=== PATIENT | male | born 1995 | race Caucasian/White ===

== ENCOUNTER 2020-08-03 20:05 | Emergency (ER) | payer OTHER, SELFPAY ==
[2020-08-03 20:22] VITALS: BP 143/89; PULSE 93; RESP 14; TEMP 37; O2SAT 99; BMI 33.7
--- NOTE | 2020-08-03 20:36 | ED_ITS ---
HPI - Dental/Oral General: Chief complaint: Dental/Oral Stated complaint: oral pain Time Seen by Provider: 08/03/20 20:23 Source: patient Mode of arrival: ambulatory Limitations: no limitations History of Present Illness: HPI Narrative: Patient comes in today for complaints of right lower jaw wisdom tooth pain. Patient reports losing a piece of his tooth that was coming through. Patient appears well. Patient reports dental pain. Patient is managing secretions well. Patient appears no acute distress. Location: Tooth # (32) Onset (ago): day(s) Duration: constant Severity: moderate Exacerbating factors: chewing and swallowing Context: other (impacted wisdom teeth) Associated symptoms: Reports odynophagia Treatment prior to arrival: none Review of Systems General: Reports: 10 or more systems reviewed and unremarkable except in HPI and below ENMT: Reports: odynophagia and dental pain PFSH ED PFSH: Social History Smoking and tobacco status: current every day smoker Alcohol intake: current Physical Exam Const: COMMON NORMALS: no acute distress and patient oriented x3 GENERAL APPEARANCE: cooperative HENMT: COMMON NORMALS: normocephalic, TM's normal bilaterally and Normal external nose present HEAD & SCALP: normal to inspection and normocephalic NOSE: Normal external nose present TYMPANIC MEMBRANE: TM's normal bilaterally MOUTH: Normal oral and palatal mucosa present THROAT: posterior oropharynx normal Eye: GENERAL EYE: appearance normal, both eyes and all related structures Neck/C-Spine: COMMON NORMALS: full ROM Lymph: LYMPHATIC: no lymphadenopathy noted Chest: COMMONS NORMALS: normal inspection of the chest Resp: COMMON NORMALS: normal respiratory effort EFFORT & INSPECTION: Yes able to speak in complete sentences Cardio: COMMON NORMALS: regular rate and regular rhythm RATE: regular rate RHYTHM: regular rhythm GI: COMMON NORMALS: non-tender Back/Pelvis: COMMON NORMALS: thoracic and lumbar spine normal to inspection Extremity: COMMON NORMALS: normal to inspection Neuro: COMMON NORMALS: patient oriented x3 and moves all extremities Psych: COMMON NORMALS: mental status grossly normal and cooperative Skin: COMMON NORMALS: no rashes or lesions noted GENERAL SKIN EXAM: no rashes or lesions noted Course Vital Signs: Vital signs: Vital Signs Temperature 98.6 F 08/03/20 20:22 Pulse Rate 93 08/03/20 20:22 Respiratory Rate 14 08/03/20 20:22 Blood Pressure 143/89 08/03/20 20:22 Pulse Oximetry 99 08/03/20 20:22 MDM - Dental/Oral MDM Narrative: Medical decision making narrative: Patient comes in with sore throat and dental pain. On exam pharynx is open without any airway obstruction or significant swelling. Patient has a impacted right lower wisdom tooth that has some surrounding tissue swelling and redness. No obvious abscess is noted. Patient manages his secretions well. Vital signs are normal. Differential diagnosis includes not limited to retropharyngeal abscess, periapical abscess, dental caries, dental pain. No signs of serious illnesses noted at this time. Patient is able to swallow but complaints of difficulty with swallowing although patient has no signs of airway obstruction, posterior oropharynx asymmetry or swelling. Patient is able to manipulate jaw without any difficulty, and patient is managing secretions well. I believe patient probably has secondary inflammation to his dental pain. We will treat patient with some dexamethasone to help with the pain and inflammation. We will cover if antibiotic including a Rocephin injection and Augmentin to follow. Patient will be given ketorolac to take for pain and inflammation further. Patient was given injections of medications to start due to his discomfort with swallowing. Discharge Plan Discharge Patient Disposition: Home Clinical Impression: Toothache, Dental caries Condition: Stable Prescriptions: New Augmentin 875-125 mg tablet 1 tab PO BID Qty: 14 RF: 0 ketorolac 10 mg tablet 10 mg PO Q6H PRN (Reason: pain) Qty: 10 RF: 0 No Action sulfamethoxazole-trimethoprim [Bactrim DS] 800-160 mg tablet 1 tab PO Q12H Qty: 14 RF: 0 Discharge Orders: Discharge ED (Routine); Ordered 08/03/20 Ordered By: Roberto Bautista Discharge Diet: Soft Mechanical Discharge Activity: Increase activity as tolerated Patient Instructions: Toothache (ED), Opioid Safety Activity Restrictions/Additional Instructions: Take medication as directed. Drink plenty of water with medication. Follow-up with dentist for definitive care. Return to the emergency department for new concerns. Coding Level of Care Code ED Beam Builder Helper for Alex Galeana
[2020-08-03] MEDS: ketorolac 30 mg/mL INJ IM (21:02)
[2020-08-03] MEDS: dexamethasone 10 mg/mL INJ IM (21:02)
[2020-08-03] MEDS: cefTRIAXone 1,000 mg SDV 1000 MG IM (21:02)
[2020-08-03 21:49] VITALS: BP 148/89; PULSE 81; RESP 14; O2SAT 100
== END 2020-08-03 21:49 | disposition home or self-care (01) ==
PROVIDERS: Emergency Provider Nurse Practitioner Family
DX: K02.9 Dental caries, unspecified (principal); K08.89 Other specified disorders of teeth and supporting structures; F17.210 Nicotine dependence, cigarettes, uncomplicated
CPT/HCPCS: 96372; 99283; J0696; J1100; J1885

== ENCOUNTER 2021-07-23 17:56 | Emergency (ER) | payer OTHER, SELFPAY ==
[2021-07-23 18:04] VITALS: BP 173/61; PULSE 74; RESP 18; TEMP 36.6; O2SAT 99; BMI 34.4
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
[2021-07-23] MEDS: HYDROcodone-acetaminophen 5-325 mg Tablet 1 TAB PO (18:22)
[2021-07-23] MEDS: methocarbamol 750 mg Tablet PO (18:22)
--- NOTE | 2021-07-26 09:18 | DCPLANNER ---
Addendum entered by Chika Shah 07/30/21 09:32: Patient had a follow up appointment scheduled with ortho - patient did attend appointment. Addendum entered by Chika Shah 07/27/21 06:35: Patient has a follow up appointment scheduled for , July 29, [address] at 8:[address] Treviño at ortho. Clinic will call patient with appointment information. Original Note: quality project manager had message to schedule a follow up appointment for patient with ortho. quality project manager called the ortho clinic, spoke with Lissett, gave clinic patients information. quality project manager was told that patients information would be printed and reviewed. Clinic will call patient with appointment information.
== END 2021-07-23 18:40 | disposition home or self-care (01) ==
PROVIDERS: Emergency Provider Emergency Medicine
DX: S13.4XXA Sprain of ligaments of cervical spine, initial encounter (principal); V64.5XXA Driver of heavy transport vehicle injured in collision with heavy transport vehicle or bus in traffic accident, initial encounter; F17.200 Nicotine dependence, unspecified, uncomplicated
CPT/HCPCS: 99283

== ENCOUNTER → 2021-07-28 07:58 | Outpatient (BNVA) | payer OTHER, SELFPAY | PROVIDERS: Referring Provider Emergency Medicine; Visit Provider Specialist | DX: M25.562 Pain in left knee (principal); V89.2XXA Person injured in unspecified motor-vehicle accident, traffic, initial encounter | CPT/HCPCS: 73560; 73565 ==

== ENCOUNTER → 2021-08-03 15:55 | Outpatient (BNVA) | payer OTHER, SELFPAY | PROVIDERS: Visit Provider Family Medicine | DX: M54.2 Cervicalgia (principal); M62.830 Muscle spasm of back; Z76.89 Persons encountering health services in other specified circumstances | CPT/HCPCS: 80053; 85025 ==

== ENCOUNTER → 2021-08-05 09:17 | Outpatient (BNVA) | payer OTHER, SELFPAY | PROVIDERS: Visit Provider Orthopaedic Surgery | DX: M54.2 Cervicalgia (principal) | CPT/HCPCS: 72050 ==

== ENCOUNTER → 2021-08-12 08:50 | Outpatient (BNVA) | payer OTHER, SELFPAY | PROVIDERS: Visit Provider Physician Assistant | DX: M54.50 Low back pain, unspecified (principal); M54.6 Pain in thoracic spine | CPT/HCPCS: 72072; 72110 ==

== ENCOUNTER 2021-08-16 15:22 | Outpatient (CLI) | payer OTHER, SELFPAY ==
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
== END 2021-08-16 15:23 | disposition home or self-care (01) ==
LOC: RAD 15:25
PROVIDERS: PCP Family Medicine; Visit Provider Specialist
DX: M25.562 Pain in left knee (principal); S13.4XXA Sprain of ligaments of cervical spine, initial encounter; V89.2XXA Person injured in unspecified motor-vehicle accident, traffic, initial encounter; R60.0 Localized edema
CPT/HCPCS: 73721

== ENCOUNTER 2021-08-18 06:00 | Outpatient (RCR) | payer OTHER, SELFPAY | END 2021-09-02 23:59 | disposition home or self-care (01) | LOC: SPT 06:00 | PROVIDERS: PCP Family Medicine; Referring Provider Orthopaedic Surgery; Visit Provider Orthopaedic Surgery | DX: M54.2 Cervicalgia (principal); M54.9 Dorsalgia, unspecified | CPT/HCPCS: 97110; 97140; 97161 ==

== ENCOUNTER 2021-09-01 06:00 | Outpatient (RCR) | payer OTHER, SELFPAY | END 2021-09-02 23:59 | disposition home or self-care (01) | LOC: SPT 06:00 | PROVIDERS: PCP Family Medicine; Referring Provider Specialist; Visit Provider Specialist | DX: M25.562 Pain in left knee (principal) | CPT/HCPCS: 97161; G0283 ==

== ENCOUNTER 2021-09-03 06:00 | Outpatient (RCR) | payer OTHER, SELFPAY | END 2021-09-15 23:59 | disposition home or self-care (01) | LOC: SPT 06:00 | PROVIDERS: PCP Family Medicine; Referring Provider Orthopaedic Surgery; Visit Provider Orthopaedic Surgery | DX: M54.2 Cervicalgia (principal); M54.9 Dorsalgia, unspecified | CPT/HCPCS: 97110 ==

== ENCOUNTER 2021-09-06 09:13 | Emergency (ER) | payer OTHER, SELFPAY ==
[2021-09-06 09:58] VITALS: BP 130/73; PULSE 111; RESP 21; TEMP 36.8; O2SAT 99; BMI 34.4
--- NOTE | 2021-09-06 10:29 | XR_ITS ---
WS: [id number] XR chest 1V portable [id number] REASON FOR EXAM: cough and fever FINDINGS: The heart and mediastinum are within normal limits. Calcified granulomatous disease in both hemithoraces. No acute pulmonary parenchymal or pleural abnormality. Bony thorax is intact with no significant focal abnormality. XR/XR chest 1V portable [id number] IMPRESSION: No acute chest abnormality.
--- NOTE | 2021-09-06 10:30 | ED_ITS ---
HPI - COVID General: Chief Complaint: COVID symptoms Stated Complaint: fever / throat and head pain Time Seen by Provider: 09/06/21 09:58 Triage information: Has fever, cough or shortness of breath . History of Present Illness: Patient is a 25-year-old male comes to the ED with upper respiratory symptoms. Symptoms have been going on for the past 3 days. Patient reports having fever, cough, nasal congestion drainage, body aches and sore throat. His sore throat is painful. He is able to eat and drink much because of his nausea and sore throat. He feels dehydrated. was just diagnosed with influenza over the past week. COVID 19 common symptoms: positive fever(s), non-productive cough, body aches, throat pain and nasal congestion; negative chills, productive cough, dyspnea, fatigue, headache(s), nausea, vomiting or diarrhea COVID 19 other sytmptoms: negative chest pain COVID Results: SARS-CoV-2 (PCR) Not detected (NOT DETECT) 09/06/21 10:20 09/06/21 Coronavirus Type 229E (PCR) Not detected (NOT DETECT) 09/06/21 10:20 09/06/21 Review of Systems Const: Reports: fever(s) and body aches; Denies: chills or fatigue Eyes: Denies: change in vision or eye discomfort ENMT: Reports: throat pain, nasal discharge and nasal congestion; Denies: odynophagia Card: Denies: chest pain, palpitations, edema, swelling of feet/ankles, dyspnea on exertion or orthopnea Resp: Reports: non-productive cough; Denies: dyspnea or productive cough GI: Denies: abdominal pain, nausea, vomiting, diarrhea, constipation or hematochezia : Denies: flank pain, difficulty urinating, dysuria or hematuria Musc: Denies: neck pain, back pain or extremity swelling Skin/Breast: Denies: rash or new lesions Neuro: Denies: headache(s), numbness in extremities or weakness in extremities PFSH ED PFSH: Medical History No pertinent family history Surgical History No pertinent past surgical history Social History Smoking and tobacco status: current every day smoker Alcohol intake: current Alcohol intake frequency: holidays/special occasions only Physical Exam Const: COMMON NORMALS: patient oriented x3 and alert GENERAL APPEARANCE: cooperative HENMT: COMMON NORMALS: normocephalic HEAD & SCALP: normocephalic MOUTH: Normal oral and palatal mucosa present and moist mucous membranes abnormal Details: parched THROAT: uvula midline and posterior oropharynx abnormal erythema Neck/C-Spine: COMMON NORMALS: supple GENERAL: Yes normal visual inspection Resp: COMMON NORMALS: normal respiratory effort, No retractions, No use of accessory muscles and clear to auscultation bilaterally AUSCULTATION: clear to auscultation bilaterally Cardio: COMMON NORMALS: regular rate, regular rhythm, S1 normal heart sound present, S2 normal heart sound present, No gallops present (Cardio), No clicks present (Cardio), No murmurs present (Cardio) and Peripheral pulses 2+ throughout RATE: regular rate RHYTHM: regular rhythm HEART SOUNDS: S1 normal heart sound present and S2 normal heart sound present PERIPHERAL PULSES: Peripheral pulses 2+ throughout GI: COMMON NORMALS: Normal to inspection, nondistended, normoactive bowel sounds present, Soft to palpation, non-tender and no masses PALPATION: Yes Soft to palpation : COMMON NORMALS: Yes no CVA tenderness BLADDER/KIDNEY EXAM: Yes no CVA tenderness Back/Pelvis: COMMON NORMALS: no CVA tenderness Extremity: COMMON NORMALS: normal to inspection Neuro: COMMON NORMALS: patient oriented x3 and moves all extremities SENSORIUM/ORIENTATION: Yes alert Skin: GENERAL SKIN EXAM: dry skin Course Vital Signs: Vital signs: Vital Signs Temperature 100.4 F H 09/06/21 13:17 Pulse Rate 105 H 09/06/21 13:17 Respiratory Rate 26 H 09/06/21 13:17 Blood Pressure 116/72 09/06/21 13:17 Pulse Oximetry 95 09/06/21 13:17 MDM - COVID Medical Decision Making Patient is a 25-year-old male comes to the ED with upper respiratory symptoms. He has had cough, nasal congestion, body aches fever and a sore throat for the past 3 days. His tested positive for influenza within the last week. Patient had a temp of 100.4 here in the ED rest of his vitals were stable. Patient appears in no acute distress or pain. He has some posterior oropharynx erythema. The rest of exam is benign. White blood cell count 15.7 but the rest of the labs are unremarkable. Chest x-ray shows no acute findings. Strep negative, RSV negative, influenza A positive. Patient diagnosed with viral syndrome and influenza A. He was given 1 L of IV fluids here in the ED and a dose of Decadron. He was discharged home with some amoxicillin and told to follow-up with his PCP in the next week for reevaluation. Return to ED precautions given. Patient understood and agree with plan. Lab Data I reviewed the patient's lab results. : 09/06/21 10:50 09/06/21 11:30 Radiology Impressions Chest X-Ray 09/06/21 10:29 IMPRESSION: No acute chest abnormality. Laboratory Results WBC 15.7 10^3/uL (4.0-10.0) H 09/06/21 10:50 RBC 4.90 10^6/uL (4.1-5.3) 09/06/21 10:50 Hgb 15.6 g/dL (11.7-16.6) 09/06/21 10:50 Hct 45.4 % (42.0-52.0) 09/06/21 10:50 MCV 92.7 fl (80-94) 09/06/21 10:50 MCH 31.8 pg (28.0-34.0) 09/06/21 10:50 MCHC 34.4 g/dL (30.0-36.0) 09/06/21 10:50 RDW 12.7 % (12.1-15.1) 09/06/21 10:50 Plt Count 238 10^3/cmm (130-400) 09/06/21 10:50 MPV 10.2 fL (7.4-10.4) 09/06/21 10:50 Neut % (Auto) 82.5 % 09/06/21 10:50 Lymph % (Auto) 8.9 % 09/06/21 10:50 [place] % (Auto) 7.3 % 09/06/21 10:50 Eos % (Auto) 0.6 % 09/06/21 10:50 Baso % (Auto) 0.3 % 09/06/21 10:50 Neut # (Auto) 12.93 10^3/uL (1.8-7.7) H 09/06/21 10:50 Lymph # (Auto) 1.4 10^3/uL (0.8-4.8) 09/06/21 10:50 [place] # (Auto) 1.1 10^3/uL (0.2-0.9) H 09/06/21 10:50 Eos # (Auto) 0.1 10^3/uL (0.0-0.8) 09/06/21 10:50 Baso # (Auto) 0.1 10^3/uL (0.0-0.1) 09/06/21 10:50 Nucleated RBC % (auto) 0 % 09/06/21 10:50 Nucleated RBCs # 0.0 /100WBC 09/06/21 10:50 Sodium 137 mmol/L (136-145) 09/06/21 11:30 Potassium 3.7 mmol/L (3.5-5.1) 09/06/21 11:30 Chloride 106 mmol/L (98-107) 09/06/21 11:30 Carbon Dioxide 21 mmol/L (22-29) L 09/06/21 11:30 Anion Gap 13.7 (5-19) 09/06/21 11:30 BUN 10 mg/dL (6-20) 09/06/21 11:30 Creatinine 1.0 mg/dL (0.7-1.2) 09/06/21 11:30 GFR Calculation 92.6 mL/min (90-130) 09/06/21 11:30 Glucose 98 mg/dL (65-115) 09/06/21 11:30 Calculated Osmolality 283 mOsm/kg (285-295) L 09/06/21 11:30 Calcium 8.4 mg/dL (8.5-10.5) L 09/06/21 11:30 Total Bilirubin 0.5 mg/dL (0.15-1.2) 09/06/21 11:30 AST 16 U/L (0-40) 09/06/21 11:30 ALT 35 U/L (0-41) 09/06/21 11:30 Alkaline Phosphatase 77 IU/L (40-130) 09/06/21 11:30 Total Protein 5.6 g/dL (6.6-8.7) L 09/06/21 11:30 Albumin 3.8 g/dL (3.5-5.2) 09/06/21 11:30 Globulin 1.8 g/dL (1.3-4.6) 09/06/21 11:30 Nasal Influ A H1 2009 PCR Not detected (NOT DETECT) 09/06/21 12:36 Coronavirus 229E (PCR) Not detected (NOT DETECT) 09/06/21 10:20 Influenza A (H1) PCR Not detected (NOT DETECT) 09/06/21 12:36 Influenza A (H3) PCR Detected (NOT DETECT) A 09/06/21 12:36 Influenza Type A Ag Negative (Negative) 09/06/21 10:20 Influenza Type A (PCR) Detected (NOT DETECT) A 09/06/21 12:36 Influenza Type B Ag Negative (Negative) 09/06/21 10:20 Influenza Type B (PCR) Not detected (NOT DETECT) 09/06/21 12:36 SARS-CoV-2 (PCR) Not detected (NOT DETECT) 09/06/21 10:20 Group A Strep Rapid Negative (Negative) 09/06/21 10:20 SARS-CoV-2 (PCR) Not detected (NOT DETECT) 09/06/21 10:20 09/06/21 Coronavirus Type 229E (PCR) Not detected (NOT DETECT) 09/06/21 10:20 09/06/21 EKG Data EKG 1: EKG interpretation date: 09/06/21 Interpretation: Sinus tachycardia, 105 bpm, no ST segment elevation or depression seen. No other acute findings noted. Discharge Plan Discharge Patient Disposition: Home Clinical Impression: Acute viral syndrome, Influenza A Condition: Stable Prescriptions: New amoxicillin 500 mg capsule 500 mg PO BID 10 Days Qty: 20 0RF ondansetron 4 mg tablet,disintegrating 4 mg PO Q8H PRN (Reason: nausea and vomiting) Qty: 15 0RF Flonase Allergy Relief 50 mcg/actuation spray,suspension 1 spray intranasal BID PRN (Reason: nasal congestion) Qty: 16 0RF Rx Instructions: administer into each nostril No Action cyclobenzaprine 10 mg tablet 10 mg PO TID PRN (Reason: muscle spasm) Qty: 30 1RF prednisone 20 mg tablet 20 mg PO DAILY Qty: 15 0RF Rx Instructions: 3 tabs PO days 1-3 2 tabs PO days 4-5 1 tab PO days 6-7 meloxicam [Mobic] 15 mg tablet 15 mg PO DAILY Qty: 30 0RF hydrocodone-acetaminophen 5-325 mg tablet 1 tab PO Q6H PRN (Reason: pain) Qty: 14 0RF Naprosyn 500 mg tablet 500 mg PO BID PRN (Reason: pain) Qty: 20 0RF Discharge Orders: Discharge ED (Routine); Ordered 09/06/21 Ordered By: Siddharth Mg Referrals: Arslan Giron, [Primary Care Provider] - Discharge Diet: Regular Discharge Activity: Increase activity as tolerated Patient Instructions: Viral Syndrome (ED) Activity Restrictions/Additional Instructions: Follow-up with medical provider as directed in the next 5 to 7 days reevaluation.Take medications as prescribed. Drink plenty of fluids and stay hydrated. Return to the ER or your medical provider if condition worsens. Please read and understand discharge instructions. Thank you for choosing [facility] for your healthcare needs today. Please realize this is an emergency room and that we are providing you with a medical screening exam and this may not be complete and all inclusive of all the testing and or work up that you may need to determine your ailment or severity of your illness. It is very important that you follow up as instructed or that you return to the Emergency Department should you have concerns or if your condition changes or worsens in any way. Coding Level of Care Code ED Compliance Field Technician for Alex Galeana Exam Comprehensive
[2021-09-06 10:38] LABS: Rapid Strep A Test Negative (Negative)
[2021-09-06 10:49] LABS: Influenza A by IFA Negative (Negative); Influenza B by IFA Negative (Negative)
[2021-09-06] MEDS: sodium chloride 0.9% 1,000 ML 999 ML IV (10:53)
[2021-09-06] MEDS: ondansetron 2 mg/ML SDV 2 mL 4 MG IVP (10:54)
[2021-09-06] MEDS: acetaminophen 1,000 MG/100 ML PIGGYBACK 400 MG IV (10:54)
[2021-09-06 11:00] VITALS: BP 118/78; PULSE 100; RESP 20; TEMP 38; O2SAT 97
[2021-09-06 11:01] VITALS: O2SAT 97
[2021-09-06 11:03] LABS: Basophils # 0.1 10^3/uL (0.0-0.1); Basophils % 0.3 %; Eosinophils # 0.1 10^3/uL (0.0-0.8); Eosinophils % 0.6 %; Hematocrit 45.4 % (42.0-52.0); Hemoglobin 15.6 g/dL (11.7-16.6); Lymphocytes # 1.4 10^3/uL (0.8-4.8); Lymphocytes % 8.9 %; Mean Corpuscular HGB Conc 34.4 g/dL (30.0-36.0); Mean Corpuscular Hemoglobin 31.8 pg (28.0-34.0); Mean Corpuscular Volume 92.7 fl (80-94); Mean Platelet Volume 10.2 fL (7.4-10.4); Monocytes # 1.1 10^3/uL (0.2-0.9); Monocytes % 7.3 %; Neutrophils # 12.93 10^3/uL (1.8-7.7); Neutrophils % 82.5 %; Nucleated Red Blood Cells % 0 %; Platelet Count 238 10^3/cmm (130-400); Red Cell Distribution Width 12.7 % (12.1-15.1); White Blood Count 15.7 10^3/uL (4.0-10.0)
[2021-09-06 12:09] LABS: Adenovirus Not Detected (NOT DETECT); Chlamydia Pneumoniae Not Detected (NOT DETECT); Coronavirus 229E,HKU1,NL63,OC4 Not Detected (NOT DETECT); Human Metapneumovirus Not Detected (NOT DETECT); Human Rhinovirus/Enterovirus Not Detected (NOT DETECT); Influenza A Detected (NOT DETECT); Influenza A H1 Not Detected (NOT DETECT); Influenza A H1-2009 Not Detected (NOT DETECT); Influenza A H3 Detected (NOT DETECT); Influenza B Not Detected (NOT DETECT); Mycoplasma Pneumoniae Not Detected (NOT DETECT); Parainfluenza Virus Type 1 Not Detected (NOT DETECT); Parainfluenza Virus Type 2 Not Detected (NOT DETECT); Parainfluenza Virus Type 3 Not Detected (NOT DETECT); Parainfluenza Virus Type 4 Not Detected (NOT DETECT); Respiratory Syncytial Virus A Not Detected (NOT DETECT); Respiratory Syncytial Virus B Not Detected (NOT DETECT); SARS-COV-2 Not Detected (NOT DETECT)
[2021-09-06 12:17] LABS: Alanine Aminotransferase 35 U/L (0-41); Albumin Level 3.8 g/dL (3.5-5.2); Alkaline Phosphatase 77 IU/L (40-130); Anion Gap 13.7 (5-19); Aspartate Amino Transferase 16 U/L (0-40); Blood Urea Nitrogen 10 mg/dL (6-20); Calcium 8.4 mg/dL (8.5-10.5); Carbon Dioxide 21 mmol/L (22-29); Chloride 106 mmol/L (98-107); Globulin 1.8 g/dL (1.3-4.6); Glomerular Filtration Rate 92.6 mL/min (90-130); Glucose 98 mg/dL (65-115); Osmolality Calculated 283 mOsm/kg (285-295); Potassium 3.7 mmol/L (3.5-5.1); Sodium 137 mmol/L (136-145); Total Bilirubin 0.5 mg/dL (0.15-1.2); Total Protein 5.6 g/dL (6.6-8.7)
[2021-09-06 12:36] LABS: Influenza A Detected (NOT DETECT); Influenza A H1 Not Detected (NOT DETECT); Influenza A H1-2009 Not Detected (NOT DETECT); Influenza A H3 Detected (NOT DETECT); Influenza B Not Detected (NOT DETECT); Results from Genmark
[2021-09-06] MEDS: dexamethasone 10 mg/mL INJ IVP (12:57)
--- NOTE | 2021-09-06 12:57 | ECG_ITS ---
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 Measurements Intervals [place] Rate: 105 P: 59 CO: 218 QRS: 82 QRSD: 88 T: 39 QT: 281 QTc: 372 Interpretive Statements SINUS TACHYCARDIA WITH FIRST DEGREE AV BLOCK No previous ECG available for comparison Electronically Signed On 09-07-2021 9:17:11 CDT by Anand Stearns M.D. [email or web address]
[2021-09-06 13:17] VITALS: BP 116/72; PULSE 105; RESP 26; TEMP 38; O2SAT 95
== END 2021-09-06 13:18 | disposition home or self-care (01) ==
PROVIDERS: Emergency Provider Physician Assistant; PCP Family Medicine
DX: J10.1 Influenza due to other identified influenza virus with other respiratory manifestations (principal); F17.210 Nicotine dependence, cigarettes, uncomplicated
CPT/HCPCS: 71045; 80053; 85025; 87081; 87631; 87635; 87804; 87880; 93005; 96361; 96374; 96375; 99283; J1100; J2405; J7030

== ENCOUNTER 2021-11-02 08:19 | Outpatient (CLI) | payer OTHER, SELFPAY ==
--- NOTE | 2021-11-02 08:45 | MR_ITS ---
WS: [id number] MRI CERVICAL SPINE NONCONTRAST TECHNIQUE: Sagittal T1, T2 and STIR imaging. Axial T2, gradient, and fiesta imaging. CLINICAL INFORMATION: pain COMPARISON: None. FINDINGS: Straightening of the normal cervical lordosis. Cord signal is normal. No high-grade central canal haim nosis. C2-C3: Normal. C3-C4: Minimal disc bulge with endplate ridging. Mild LEFT and no significant RIGHT foraminal narrowi ng. Spinal canal is patent. Mild facet arthropathy. Disc bulging eccentric to the LEFT. C4-C5: Minimal disc bulge with endplate ridging. Mild facet arthropathy. Mild LEFT greater than RIGHT foraminal narrowing. C5-C6: No significant disc bulging. Mild endplate ridging. Mild LEFT greater than RIGHT bony foramina l narrowing. Mild facet arthropathy. C6-C7: Normal. C7-T1: Slight anterolisthesis C7 on T1. Spinal canal and foramen are patent. Visualized brain stem structures: Normal. Prevertebral soft tissues: Normal. MR/MR cervical spin wo con* [id number] IMPRESSION: 1. Straightening of the normal cervical lordosis. Mild cervical curve. 2. Mild bony foraminal narrowing LEFT C3-C4, LEFT C4-C5, bilateral C5-C6 LEFT greater than RIGHT. 3. Mild facet arthropathy more prominent at C4-C5 and C5-C6. 4. No significant central canal stenosis. Cord signal is normal.
== END 2021-11-02 08:20 | disposition home or self-care (01) ==
LOC: RAD 08:19
PROVIDERS: PCP Family Medicine; Visit Provider Orthopaedic Surgery
DX: M54.2 Cervicalgia (principal); S13.4XXA Sprain of ligaments of cervical spine, initial encounter; X58.XXXA Exposure to other specified factors, initial encounter
CPT/HCPCS: 72141

== ENCOUNTER 2021-12-08 10:58 | Outpatient (CLI) | payer OTHER, SELFPAY ==
--- NOTE | 2021-12-08 11:00 | MR_ITS ---
WS: [id number] MRI LUMBAR SPINE NONCONTRAST HISTORY: M54.9 - Dorsalgia, unspecified COMPARISON: None available. TECHNIQUE: Sagittal and axial multisequence imaging is submitted. Normal lumbar alignment with no compression fractures or marrow edema. Disc spaces and vertebral body heights are well-preserved. Conus terminates normally at L1-2 disc level. L1-L2: Normal. L2-L3: Normal. L3-L4: Mild ligamentum flavum hypertrophy and facet arthritis. No stenosis. L4-L5: Minimal diffuse disc bulging with mild ligamentum flavum hypertrophy. Small foraminal osteophy sebas. Only very mild foraminal stenosis and mild encroachment into the subarticular recesses. L5-S1: Mild annular disc bulging. Mild narrowing of the foramen by facet and osteophyte disease. Mild bilateral foraminal stenosis. MR/MR lumbar spine wo con* [id number] IMPRESSION: 1. No high-grade stenosis or disc protrusions. 2. Mild foraminal narrowing at L4-5 and L5-S1 and mild subarticular recess enc roachment at L4-5.
--- NOTE | 2021-12-08 11:45 | MR_ITS ---
WS: [id number] MRI THORACIC SPINE noncontrast. HISTORY: M54.9 - Dorsalgia, unspecified, pain to LEFT shoulder. COMPARISON: None available. TECHNIQUE: Multiplanar sequences are performed in sagittal and axial planes. Posterior thoracic alignment is normal. Mild narrowing of the disc spaces. No acute fracture or marro w edema. No signal abnormality within the cord. No cord atrophy or enlargement. T1-2: Normal. T2-3: Normal. T3-4: Very small proximal LEFT foraminal disc protrusion and/or osteophyte. This may be contacting t he traversing nerve root. T4-5: Additional very small LEFT paracentral versus proximal foraminal disc protrusion. T5-6: Normal. T6-7: Very shallow RIGHT paracentral disc protrusion may very slightly contacts the thoracic cord. N o displacement. T7-8: Very shallow RIGHT paracentral disc protrusion contacts the cord. No displacement. T8-9: Mild disc bulging and osteophytic ridging. T9-10: Normal. T10-11: Normal. T11-12: Normal. Paravertebral soft tissues are negative. MR/MR thoracic spin wo con* [id number] IMPRESSION: 1. Very small proximal LEFT foraminal disc protrusions at T3-4 and T4-5. Minim al contact on the nerve root is likely. 2. Very shallow RIGHT paracentral disc protrusion at C6-7 and T7-8 with minima l contact on the cord. No displacement. 3. No fracture or marrow edema.
== END 2021-12-08 10:59 | disposition home or self-care (01) ==
LOC: RAD 10:59
PROVIDERS: PCP Family Medicine; Visit Provider Orthopaedic Surgery
DX: M54.9 Dorsalgia, unspecified (principal); M51.24 Other intervertebral disc displacement, thoracic region
CPT/HCPCS: 72146; 72148

== ENCOUNTER 2022-09-13 08:52 | Emergency (ER) | payer OTHER, SELFPAY ==
[2022-09-13] VITALS (33 sets, daily range): BP systolic 133–156; BP diastolic 85–106; PULSE 70–103; RESP 10–29; TEMP 36.8; O2SAT 90–100
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
--- NOTE | 2022-09-13 08:59 | XR_ITS ---
WS: [id number] EXAMINATION: XR tibia fibula RT 2V [id number] REASON FOR EXAM: pain COMPARISON: None available. ORDER DATE: 09/13/2022 9:05 AM FINDINGS: There is no sign of any acute osseous or articular abnormality. There are no specific soft tissue abn ormalities. XR/XR tibia fibula RT 2V [id number] IMPRESSION: No acute change
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
--- NOTE | 2022-09-13 08:59 | XR_ITS ---
WS: [id number] EXAMINATION: XR ankle RT min 3V* [id number] REASON FOR EXAM: pain COMPARISON: None available. ORDER DATE: 09/13/2022 9:05 AM TECHNIQUE: 3 views of the right ankle were obtained. X-RAY FINDINGS: There is satisfactory alignment. There is no evidence of abnormality of the ankle mortise. Prominent os trigonum XR/XR ankle RT min 3V* [id number] IMPRESSION: No fractures or dislocations of the right ankle.
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
[2022-09-13] MEDS: tetanus-dipt-pertussis 0.5 mL SDV IM (09:11)
[2022-09-13 09:18] LABS: Hemoglobin 15.5 g/dL (11.7-16.6); Red Blood Count 5.07 10^6/uL (4.1-5.3); White Blood Count 10.2 10^3/uL (4.0-10.0)
[2022-09-13 09:19] LABS: Basophils # 0.1 10^3/uL (0.0-0.1); Basophils % 0.7 %; Eosinophils # 0.3 10^3/uL (0.0-0.8); Eosinophils % 2.8 %; Hematocrit 47.1 % (42.0-52.0); Lymphocytes # 3.2 10^3/uL (0.8-4.8); Mean Corpuscular HGB Conc 32.9 g/dL (30.0-36.0); Mean Corpuscular Hemoglobin 30.6 pg (28.0-34.0); Mean Corpuscular Volume 92.9 fl (80-94); Mean Platelet Volume 9.7 fL (7.4-10.4); Monocytes # 0.8 10^3/uL (0.2-0.9); Monocytes % 7.4 %; Neutrophils # 5.89 10^3/uL (1.8-7.7); Neutrophils % 57.9 %; Nucleated Red Blood Cells % 0 %; Platelet Count 283 10^3/cmm (130-400)
[2022-09-13 09:36] LABS: Alanine Aminotransferase 24 U/L (0-41); Albumin Level 3.9 g/dL (3.5-5.2); Alkaline Phosphatase 75 U/L (40-130); Anion Gap 14.8 (5-19); Aspartate Amino Transferase 18 U/L (0-40); Blood Urea Nitrogen 13 mg/dL (6-20); Calcium 8.9 mg/dL (8.5-10.5); Carbon Dioxide 23 mmol/L (22-29); Chloride 106 mmol/L (98-107); Globulin 2.5 g/dL (1.3-4.6); Glomerular Filtration Rate 82.2 mL/min (90-130); Glucose 90 mg/dL (65-115); Osmolality Calculated 290 mOsm/kg (285-295); Potassium 3.8 mmol/L (3.5-5.1); Sodium 140 mmol/L (136-145); Total Bilirubin 0.4 mg/dL (0.15-1.2); Total Protein 6.4 g/dL (6.6-8.7)
[2022-09-13] MEDS: iohexol 350 mg/mL 500 mL Btl (per mL) IV (09:38)
[2022-09-13] MEDS: ketorolac 30 mg/mL INJ IVP (10:18)
[2022-09-13 10:36] LABS: Add Urine Microscopic? NO
[2022-09-13 10:37] LABS: Charge for UA Resulting for Rev
[2022-09-13 10:44] LABS: Bilirubin Urine Neg (Negative); Blood Urine Neg (Negative); Glucose Urine UA Norm (Normal); Ketones Urine Negative (Negative); Leukocyte Esterase Urine Negative (Negative); Nitrate Urine Negative (Negative); Protein Urine Neg (Negative); Specific Gravity, Urine 1.025 (1.005-1.030); Urine Appearance Clear (CLEAR); Urine Color Yellow (Yellow); Urobilinogen Urine Norm (Negative); pH Urine 6 (5-7)
--- NOTE | 2022-09-13 10:54 | XR_ITS ---
WS: [id number] EXAMINATION: XR foot RT min 3V* [id number] REASON FOR EXAM: pain COMPARISON: None available. ORDER DATE: 09/13/2022 10:57 AM TECHNIQUE: 3 views of the right foot were obtained. X-RAY FINDINGS: There are no fractures or dislocations. No focal abnormal soft tissue swelling. Joint spaces are pres erved. XR/XR foot RT min 3V* [id number] IMPRESSION: No fractures or dislocations of the right foot.
[2022-09-13] MEDS: HYDROcodone-acetaminophen 5-325 mg Tablet 1 TAB PO (11:20)
--- NOTE | 2022-09-13 15:06 | DCPLANNER ---
Addendum entered by Chika Shah 09/23/22 08:11: Patient had a follow up appointment scheduled with ortho - patient did attend appointment. Addendum entered by Chika Shah 09/14/22 07:47: Patient has a follow up appointment scheduled for Tuesday, September 20, 2022 at 1:[address] Liriano at ortho. Original Note: sales department manager had message to schedule a follow up appointment for patient with podiatry. sales department manager sent patients information to the front office staff at podiatry. Patients information will be printed and reviewed. Clinic will call patient with appointment information.
--- NOTE | 2022-09-20 13:58 | DCPLANNER ---
airline manager called patient due to no primary care physician - no answer at this time
== END 2022-09-13 11:40 | disposition home or self-care (01) ==
PROVIDERS: Emergency Provider Family Medicine
DX: S93.601A Unspecified sprain of right foot, initial encounter (principal); S00.81XA Abrasion of other part of head, initial encounter; V89.2XXA Person injured in unspecified motor-vehicle accident, traffic, initial encounter; Z23 Encounter for immunization
CPT/HCPCS: 70450; 71260; 72125; 73562; 73590; 73610; 73630; 74177; 80053; 81003; 85025; 90715; 96374; 99285; J1885; Q9967

== ENCOUNTER → 2022-09-27 14:39 | Outpatient (BNVA) | payer OTHER, SELFPAY | PROVIDERS: Visit Provider Podiatrist Foot & Ankle Surgery | DX: S93.321A Subluxation of tarsometatarsal joint of right foot, initial encounter (principal); V89.2XXA Person injured in unspecified motor-vehicle accident, traffic, initial encounter | CPT/HCPCS: 73630 ==

== ENCOUNTER 2022-10-07 11:30 | Day surgery (SDC) | payer OTHER, SELFPAY ==
[2022-10-04 13:50] VITALS: BMI 31.5
[2022-10-07] VITALS (7 sets, daily range): BP systolic 128–145; BP diastolic 74–99; PULSE 64–85; RESP 16–18; TEMP 36.1–36.5; O2SAT 96–100
--- NOTE | 2022-10-07 | XR_ITS ---
WS: [id number] INTRAOPERATIVE TECHNIQUE: 1 Spot fluoroscopic images for intraoperative purposes. FLUOROSCOPY TIME: 7 seconds DLP: 0.170 mgy/cm CLINICAL INFORMATION: ALISON PICS COMPARISON: None. FINDINGS: Plate and screw fixation 1st TMT joint. Plate and screw fixation 2nd TMT. XR/XR foot RT 2V [id number] IMPRESSION: Images obtained for intraoperative purposes. .
[2022-10-07] MEDS: gabapentin 300 mg Capsule PO (11:58)
[2022-10-07] MEDS: CELEcoxib 200 mg Capsule 400 MG PO (11:58)
[2022-10-07] MEDS: sodium chloride 0.9% 1,000 ML 30 ML IV (11:58)
--- NOTE | 2022-10-07 11:58 | ANES.PREANE2 ---
Pre-Anesthetic Assessment Height/Weight: Height 1.78 m Weight 99.79 kg Temp Pulse Resp BP Pulse Ox O2 Del Method 97.7 F 85 18 140/99 100 Room Air 10/07/22 11:37 10/07/22 11:37 10/07/22 11:37 10/07/22 11:37 10/07/22 11:37 10/07/22 11:41 Preop Diagnosis: Right Lisfranc dislocation Operation Date: 10/07/22 13:00 Proposed Procedures p ?Open reduction internal fixation right first and second tarsometatarsal joint 18173 x2,S93.326A(Right) - Sebas Liriano DPM Familial anesthetic complications: NOne Was Beta Hannah taken within 24 hours: N/A Was Clonidine taken within 24 hours: N/A Last intake: Intake Last Liquid Date 10/06/22 Last Liquid Time 23:55 Last Solid Date 10/06/22 Last Solid Time 18:00 Social Tobacco and No alcohol Exam alert, oriented x 3, clear to auscultation bilaterally and regular rate & rhythm Airway Mallampati: Class II Dentition: chipped Anesthetic Plan ASA status: 2 Anesthesia: General and Regional (specify below) Risk of > 500 ml blood loss (7ml/kg in children): No Medications/Allergies Home Medications Medication Instructions Recorded Confirmed Last Taken Type amitriptyline 25 mg tablet 25 mg PO ONCE 90 days #90 tabs 07/13/22 10/04/22 10/04/22 Rx galcanezumab-gnlm 120 mg/mL 120 mg SUBCUT ONCE #1 mL 08/08/22 10/04/22 Unknown Rx subcutaneous pen injector (Emgality Pen) galcanezumab-gnlm 120 mg/mL 240 mg (2 mL) SUBCUT ONCE #2 mL 08/08/22 10/04/22 08/12/22 Rx subcutaneous pen injector (Emgality Pen) diclofenac sodium 75 mg 75 mg PO Q12H PRN pain #20 tabs 09/13/22 10/04/22 Unknown Rx tablet,delayed release tizanidine 4 mg tablet 4 mg PO Q6H PRN muscle spasticity 09/13/22 10/04/22 Unknown Rx #20 tabs hydrocodone 5 mg-acetaminophen 325 1 tab PO Q6H PRN pain 7 days #28 09/20/22 09/27/22 Unknown Rx mg tablet tabs hydrocodone 5 mg-acetaminophen 325 1 tab PO Q6H PRN pain 7 days #28 09/20/22 09/27/22 Unknown Rx mg tablet tabs hydrocodone 5 mg-acetaminophen 325 1 tab PO Q8H PRN pain 7 days #21 09/28/22 10/04/22 Unknown Rx mg tablet tabs Allergies Allergy/AdvReac Type Severity Reaction Status Date / Time No Known Allergies Allergy Verified 10/04/22 13:42 [facility] Anesthesia Medical History Cellulitis of thumb, right No pertinent family history Surgical History No pertinent past surgical history Social History Smoking and tobacco status: current every day smoker cigarettes Packs smoked per day: 1 Alcohol intake: never Substance/Drug Use: never Data Anesthesia Cardiac Studies: No Data to Display
--- NOTE | 2022-10-07 12:21 | ANES.PROC ---
Anesthesia Procedures Procedure/Date: 10/07/22 Nerve Block ^: Nerve Block 1: Main Anesthesia: general anesthesia Time Out Performed: Yes Consent: requested by attending/covering physician, from patient, from other, risks and benefits reviewed and patient agrees to proceed Nerve block location: popliteal (L) Anesthesia monitors applied: pulse oximetry, EKG, BP cuff and oxygen Nerve block position: supine Anesthetic Used: ropivicaine 0.5% (30 ml) and with decadron (4 mg) Ultrasound used to: recognize landmarks Nerve Stimulator Used?: No Interscalene/Femoral BLK: 4 stimuplex 21 g needle used for position and inplane approach, visualize local anesthetic spread and no vascular puncture identified Injection: neg aspiration of heme and paresthesia +/- Patient Tolerated Procedure: well and no complications Complications: none
--- NOTE | 2022-10-07 12:37 | W.PM.OPSUD ---
Surgery/Procedure H&P Update DATE OF PROCEDURE: October 07, 2022 DATE H&P PERFORMED: 09/27/22 CHANGES TO PREVIOUS DOCUMENTATION: none PREOP DIAGNOSIS: Right Lisfranc dislocation PLANNED PROCEDURE: Operation Date: 10/07/22 13:00 Proposed Procedures p ?Open reduction internal fixation right first and second tarsometatarsal joint 58502 x2,S93.326A(Right) - Sebas Liriano DPM
[2022-10-07] MEDS: ceFAZolin 2,000 MG in sodium chloride 0.9% (plus) 50 ML 100 MG IV (12:56)
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
--- NOTE | 2022-10-07 15:15 | ANE.PACU2 ---
Inpatient post-anesthesia follow up: Airway intact: Yes Vital signs: Temperature 97 F Pulse Rate 75 Respiratory Rate 16 Blood Pressure 145/93 Pulse Oximetry 98 Oxygen Delivery Me thod Room Air Oxygen Flow Rate Fraction of Inspir ed Oxygen Hydration adequate: Yes Nausea and vomiting: No Pain level: 1 Mental status: Baseline
== END 2022-10-07 15:25 | disposition home or self-care (01) ==
PROVIDERS: Visit Provider Podiatrist Foot & Ankle Surgery
PROC: (CPT 28730; principal; 2022-10-07 12:50)
DX: S93.324A Dislocation of tarsometatarsal joint of right foot, initial encounter (principal); F17.210 Nicotine dependence, cigarettes, uncomplicated; Z79.899 Other long term (current) drug therapy; V89.2XXA Person injured in unspecified motor-vehicle accident, traffic, initial encounter
CPT/HCPCS: 28730; 73620; 76000; C1713; C1762; C9290; J0690; J1100; J1885; J2405; J2704; J2795; J3010; J7030

== ENCOUNTER → 2022-10-20 14:00 | Outpatient (BNVA) | payer OTHER, MEDICAID, SELFPAY | PROVIDERS: Visit Provider Podiatrist Foot & Ankle Surgery | DX: S93.324A Dislocation of tarsometatarsal joint of right foot, initial encounter (principal); V89.2XXA Person injured in unspecified motor-vehicle accident, traffic, initial encounter; Z98.890 Other specified postprocedural states | CPT/HCPCS: 73630 ==

== ENCOUNTER → 2022-11-01 09:54 | Outpatient (BNVA) | payer OTHER, MEDICAID, SELFPAY | PROVIDERS: Visit Provider Podiatrist Foot & Ankle Surgery | DX: S93.321A Subluxation of tarsometatarsal joint of right foot, initial encounter (principal); V89.2XXA Person injured in unspecified motor-vehicle accident, traffic, initial encounter; Z98.890 Other specified postprocedural states | CPT/HCPCS: 73630 ==

== ENCOUNTER → 2022-12-01 12:44 | Outpatient (BNVA) | payer OTHER, MEDICAID, SELFPAY | PROVIDERS: PCP Family Medicine; Visit Provider Podiatrist Foot & Ankle Surgery | DX: Z98.890 Other specified postprocedural states (principal) | CPT/HCPCS: 73630 ==

== ENCOUNTER → 2023-01-19 15:08 | Outpatient (BNVA) | payer MEDICAID, SELFPAY | PROVIDERS: PCP Family Medicine; Visit Provider Podiatrist Foot & Ankle Surgery | DX: Z98.890 Other specified postprocedural states (principal); M76.821 Posterior tibial tendinitis, right leg | CPT/HCPCS: 73630 ==

== ENCOUNTER → 2023-04-20 14:50 | Outpatient (BNVA) | payer OTHER, MEDICAID, SELFPAY | PROVIDERS: PCP Family Medicine; Visit Provider Specialist | DX: G43.711 Chronic migraine without aura, intractable, with status migrainosus (principal) | CPT/HCPCS: 64615; 95911 ==

== ENCOUNTER → 2023-07-12 08:46 | Outpatient (BNVA) | payer OTHER, MEDICAID, SELFPAY | PROVIDERS: PCP Family Medicine; Visit Provider Nurse Practitioner Family | DX: R05.9 Cough, unspecified (principal) | CPT/HCPCS: 87400 ==

== ENCOUNTER → 2023-07-27 14:14 | Outpatient (BNVA) | payer OTHER, MEDICAID, SELFPAY | PROVIDERS: PCP Family Medicine; Visit Provider Specialist | DX: G43.711 Chronic migraine without aura, intractable, with status migrainosus (principal) | CPT/HCPCS: 64615 ==

== ENCOUNTER 2024-03-02 21:57 | Emergency (ER) | payer SELFPAY ==
[2024-03-02 21:59] VITALS: BP 143/95; PULSE 82; RESP 18; TEMP 36.7; O2SAT 99; BMI 38.0
[2024-03-02 23:54] LABS: Influenza A NEGATIVE (Negative); Influenza B NEGATIVE (Negative); Respiratory Syncytial Virus Ce NEGATIVE (Negative)
[2024-03-02 23:58] LABS: Covid PCR Positive (Negative)
--- NOTE | 2024-03-03 00:13 | ED_ITS ---
HPI - URI/Sore Throat General: Chief Complaint: Headache Stated Complaint: Migraine Time Seen by Provider: 03/03/24 00:05 History of Present Illness: 28-year-old male patient comes in today with headache and cough. Patient spouse thinks he might have COVID. Patient reports feeling unwell for the last 4 days with cough. Patient reports some improvement of symptoms but the cough has worsened and has caused him to get a headache. Patient does have a history of migraine headaches. Related Data Previous Rx's Medication Instructions Recorded galcanezumab-gnlm 120 mg/mL 120 mg SUBCUT ONCE #1 mL 01/16/23 subcutaneous pen injector (Emgality Pen) rimegepant 75 mg disintegrating 75 mg PO ONCE PRN migraine 02/09/23 tablet headache #8 tabs cetirizine 10 mg tablet (Zyrtec) 10 mg PO DAILY #30 tabs 05/30/23 onabotulinumtoxinA 100 unit 155 unit IM .[id number] #2 ea 07/07/23 solution for injection (Botox) onabotulinumtoxinA 100 unit See Rx Instructions .Route 07/07/23 solution for injection (Botox) .COMPLEX #2 ea sumatriptan succinate 100 mg 100 mg PO ONCE #10 tabs 02/08/24 tablet (Imitrex) cetirizine 10 mg tablet (Allergy 10 mg PO DAILY PRN nasal 03/02/24 Relief (cetirizine)) congestion #30 tabs fluticasone propionate 50 2 spray intranasal DAILY allergy 03/02/24 mcg/actuation nasal symptoms #16 grams spray,suspension (Flonase Allergy Relief) Allergies Allergy/AdvReac Type Severity Reaction Status Date / Time No Known Allergies Allergy Verified 03/02/24 10:08 Review of Systems General: Reports: 10 or more systems reviewed and unremarkable except in HPI and below PFSH ED PFSH: Medical History Cellulitis of thumb, right No pertinent family history Surgical History No pertinent past surgical history Social History Smoking and tobacco/nicotine status: never used tobacco/nicotine Second hand smoke exposure: No Alcohol intake: never Substance/Drug Use: never Physical Exam Const: COMMON NORMALS: alert HENMT: COMMON NORMALS: normocephalic HEAD & SCALP: normocephalic MOUTH: Normal oral and palatal mucosa present Neck/C-Spine: COMMON NORMALS: full ROM Resp: COMMON NORMALS: normal respiratory effort and clear to auscultation bilaterally AUSCULTATION: clear to auscultation bilaterally Cardio: COMMON NORMALS: regular rate and regular rhythm RATE: regular rate RHYTHM: regular rhythm GI: COMMON NORMALS: non-tender Back/Pelvis: COMMON NORMALS: thoracic and lumbar spine normal to inspection Extremity: COMMON NORMALS: full ROM Neuro: SENSORIUM/ORIENTATION: Yes alert Skin: COMMON NORMALS: turgor normal GENERAL SKIN EXAM: turgor normal Course Vital Signs: Vital signs: Vital Signs Temperature 98.0 F 03/02/24 21:59 Pulse Rate 82 03/02/24 21:59 Respiratory Rate 18 03/02/24 21:59 Blood Pressure 143/95 03/02/24 21:59 Pulse Oximetry 99 03/02/24 21:59 Oxygen Delivery Me thod Room Air 03/02/24 21:59 MDM - URI/Sore Throat Medical Decision Making 28-year-old male patient comes in today with cough x 4 days. Patient started having a bad headache today. Patient appears mildly unwell but nontoxic. Lungs are clear to auscultation. Skin is warm and dry. Vital signs are normal. Differential diagnosis migraine headache, viral syndrome, COVID-19, dehydration. Patient was tested positive for COVID-19. Patient was given a dose of Toradol and Compazine for his migraine headache. Patient was discharged home with recommendation for further treatment and follow-up. Patient reported understanding agreed to plan. Lab Data Laboratory Results Coronavirus (PCR) Positive (Negative) A 03/02/24 23:03 Influenza A (PCR) Negative (Negative) 03/02/24 23:03 Influenza Type B (PCR) Negative (Negative) 03/02/24 23:03 RSV (PCR) Negative (Negative) 03/02/24 23:03 No radiology studies performed this visit Discharge Plan Discharge Patient Disposition: Home Clinical Impression: COVID Headache Qualifiers: Headache type: unspecified Headache chronicity pattern: acute headache Intractability: not intractable Qualified Code(s): R51.9 - Headache, unspecified Condition: Stable Prescriptions: No Action sumatriptan succinate [Imitrex] 100 mg tablet 100 mg PO ONCE Qty: 10 2RF cetirizine [Allergy Relief (cetirizine)] 10 mg tablet 10 mg PO DAILY PRN (Reason: nasal congestion) Qty: 30 0RF fluticasone propionate [Flonase Allergy Relief] 50 mcg/actuation spray,suspension 2 spray intranasal DAILY Qty: 16 0RF Rx Instructions: administer into each nostril cetirizine [Zyrtec] 10 mg tablet 10 mg PO DAILY Qty: 30 0RF Emgality Pen 120 mg/mL pen injector 120 mg SUBCUT ONCE Qty: 1 1RF Rx Instructions: Take 120mg (1 mL) injection once on your second and third month. rimegepant 75 mg tablet,disintegrating 75 mg PO ONCE PRN (Reason: migraine headache) Qty: 8 0RF Rx Instructions: TAKE EVERY OTHER DAY Botox 100 unit recon soln See Rx Instructions .ROUTE .COMPLEX Qty: 2 0RF Dose Instruction: Inject 155 units IM-31 sites, 5 units/site per FDA protocol: in procerus, in bilateral proposal coordinator, frontalis (2 sites bilaterally),temporalis (4 sites bilateral), occipitalis (3 sites bilateral), paraspinosus cervical bilaterally (2 injections), trapezius (3 sites bilateral) Rx Instructions: Inject 155 units IM-31 sites, 5 units/site per FDA protocol: in procerus, in bilateral proposal coordinator, frontalis (2 sites bilaterally),temporalis (4 sites bilateral), occipitalis (3 sites bilateral), paraspinosus cervical bilaterally (2 injections), trapezius (3 sites bilateral) Botox 100 unit recon soln 155 unit IM .[id number] Qty: 2 2RF Discharge Orders: Discharge ED (Routine); Ordered 03/03/24 Ordered By: Roberto Bautista Discharge Diet: Usual diet Discharge Activity: Increase activity as tolerated Patient Instructions: Upper Respiratory Infection (ED) Activity Restrictions/Additional Instructions: Drink plenty of water and fluids. Use acetaminophen and/or ibuprofen as needed for pain and discomfort. Follow-up with primary care for further instructions. Return to ER for new concerns. Coding Level of Care Code ED Corrective Therapy Aide for Alex Galeana
[2024-03-03] MEDS: prochlorperazine 10 mg/2 mL Inj IM (00:37)
[2024-03-03] MEDS: ketorolac 30 mg/mL INJ IM (00:37)
[2024-03-03 01:04] VITALS: BP 155/102; PULSE 69; RESP 18; O2SAT 96
== END 2024-03-03 01:00 | disposition home or self-care (01) ==
PROVIDERS: Emergency Provider Nurse Practitioner Family
DX: U07.1 COVID-19 (principal); R51.9 Headache, unspecified
CPT/HCPCS: 0241U; 96372; 99284; J0780; J1885

== ENCOUNTER → 2024-05-05 10:56 | Outpatient (BNVA) | payer BC, SELFPAY | PROVIDERS: Visit Provider Nurse Practitioner | DX: R50.9 Fever, unspecified (principal) | CPT/HCPCS: 87071; 87400; 87880 ==

== ENCOUNTER → 2024-06-23 13:45 | Outpatient (BNVA) | payer OTHER, BC, SELFPAY | DX: R50.9 Fever, unspecified (principal); A08.4 Viral intestinal infection, unspecified | CPT/HCPCS: 87400 ==

== ENCOUNTER 2024-10-31 01:54 | Observation (INO) | payer SELFPAY ==
[2024-10-31] VITALS (16 sets, daily range): BP systolic 102–158; BP diastolic 64–99; PULSE 91–129; RESP 15–24; TEMP 36.7–37.7; O2SAT 92–99; BMI 40.1
[2024-10-31 02:23] LABS: Basophils # 0.1 10^3/uL (0.0-0.1); Basophils % 0.5 %; Eosinophils # 0.1 10^3/uL (0.0-0.8); Eosinophils % 0.5 %; Hematocrit 44.9 % (37-53); Lymphocytes # 2.2 10^3/uL (0.8-4.8); Lymphocytes % 13.3 %; Mean Corpuscular HGB Conc 34.5 g/dL (30-55); Mean Corpuscular Hemoglobin 30.8 pg (27-33); Mean Corpuscular Volume 89.1 fl (82-101); Mean Platelet Volume 10.1 fL (7.4-10.4); Monocytes # 1.2 10^3/uL (0.2-0.9); Monocytes % 7.1 %; Neutrophils % 78.2 %; Nucleated Red Blood Cells % 0 %; Platelet Count 261 10^3/cmm (157-399); Red Blood Count 5.04 10^6/uL (3.85-5.65); Red Cell Distribution Width 12.8 % (12.1-15.1); White Blood Count 16.62 10^3/uL (3.29-11.43)
--- NOTE | 2024-10-31 02:28 | ECG_ITS ---
[facility] Test Date: 2024-10-31 Pat Name: Estrada Hughes Department: Room: EDIP Gender: Male Take Down Inspector: : 1995 Requested By: Yonas Mcfadden Order Number: [id number] Reading MD: RAJINDER LORENZANA Measurements Intervals [place] Rate: 128 P: 60 MI: 164 QRS: 110 QRSD: 99 T: 18 QT: 270 QTc: 395 Interpretive Statements SINUS TACHYCARDIA LOW QRS VOLTAGE IN PRECORDIAL LEADS [QRS DEFLECTION < 1.0 mV IN CHEST LEADS] POSSIBLE RIGHT VENTRICULAR CONDUCTION DELAY [RSR (QR) IN V1/V2] LEFT POSTERIOR FASCICULAR BLOCK [QRS AXIS > 109, INFERIOR Q] NONSPECIFIC ST & T-WAVE ABNORMALITY Compared to ECG 09/06/2021 13:03:02 Low QRS voltage now present Left posterior fascicular block now present T-wave abnormality now present First degree AV block no longer present Electronically Signed On 11-06-2024 22:57:29 CDT by RAJINDER LORENZANA [email or web address] [id number]
[2024-10-31 02:44] LABS: Alanine Aminotransferase 117 U/L (0-41); Albumin Level 4.3 g/dL (3.5-5.2); Alkaline Phosphatase 73 U/L (40-130); Aspartate Amino Transferase 54 U/L (0-40); Blood Urea Nitrogen 20 mg/dL (6-20); Calcium 9.9 mg/dL (8.5-10.5); Carbon Dioxide 20 mmol/L (22-29); Chloride 99 mmol/L (98-107); Creatinine Clr Calc Pharmacy 136.1701; Globulin 2.9 g/dL (1.3-4.6); Glomerular Filtration Rate 80.9 mL/min (90-130); Glucose 120 mg/dL (65-115); Lipase 43 U/L (13-60); Osmolality Calculated 288 mOsm/kg (285-295); Sodium 137 mmol/L (136-145); Total Bilirubin 0.9 mg/dL (0.15-1.2); Total Protein 7.2 g/dL (6.6-8.7)
[2024-10-31 02:45] LABS: Lactic Sepsis W/Reflex 3.6 mmol/L (0.5-2.2)
[2024-10-31 02:47] LABS: Anion Gap 22.3 (5-19); Potassium 4.3 mmol/L (3.5-5.1)
--- NOTE | 2024-10-31 02:52 | CTR_ITS ---
PROCEDURE INFORMATION: Exam: CT Abdomen And Pelvis With Contrast Exam date and time: 10/31/2024 4:32 AM Age: 28 years old Clinical indication: Abdominal pain; Generalized; Vomiting TECHNIQUE: Imaging protocol: Computed tomography of the abdomen and pelvis with contrast. Radiation optimization: All CT scans at this facility use at least one of these dose optimization techniques: automated exposure control; mA and/or kV adjustment per patient size (includes targeted exams where dose is matched to clinical indication); or iterative reconstruction. Contrast material: OMNI 350; Contrast volume: 100 ml; Contrast route: INTRAVENOUS (IV); COMPARISON: CT chest abdpel w/*[id number] 09/13/2022 9:32 AM RADIATION DOSE METRICS: Total DLP (mGy-cm): 1297.4 FINDINGS: Lungs: Basilar scarring/atelectasis. Heart: Base of heart is unremarkable as visualized. Liver: Diffuse hepatic steatosis. Gallbladder and biliary ducts: Prominent gallbladder without inflammatory change. Pancreas: Pancreas demonstrates fatty infiltration with perhaps mild superimposed parenchymal atrophy. Spleen: Normal. No splenomegaly. Adrenal glands: Normal. No mass. Kidneys and ureters: Normal. No hydronephrosis. Stomach and bowel: Mild colonic stool burden. Appendix: No evidence of appendicitis. Intraperitoneal space: Unremarkable. No free air. No significant fluid collection. Vasculature: Unremarkable. No abdominal aortic aneurysm. Lymph nodes: Unremarkable. No enlarged lymph nodes. Urinary bladder: Unremarkable as visualized. Reproductive: Unremarkable as visualized. Bones/joints: Unremarkable. No acute fracture. Soft tissues: Small left fat containing indirect inguinal hernia. CT/CT abdomen pelvis w con* [id number] IMPRESSION: Diffuse hepatic steatosis which appears relatively acute from 09/13/2022. Clinical correlation is necessary for underlying possible hepatotoxic causes such as alcohol, medication, metabolic/inflammatory conditions, viruses.
--- NOTE | 2024-10-31 03:58 | ED_ITS ---
HPI - Nausea/Vomiting/Diarrhea 2 General: Chief complaint: Nausea/Vomiting/Diarrhea Stated complaint: Vomiting\Chills Time Seen by Provider: 10/31/24 03:45 History of Present Illness: 28-year-old man with history of migraine s presents emergency room with nausea and vomiting. No focal abdominal pain. He does have some pain in his neck he thinks from vomiting. No fevers. This been going on for about 3 hours. Related Data Previous Rx's ?Medication ?Instructions ?Recorded onabotulinumtoxinA 100 unit See Rx Instructions .Route 07/07/23 solution for injection (Botox) .COMPLEX #2 ea sumatriptan succinate 100 mg 100 mg PO ONCE #10 tabs 0 02/08/24 tablet (Imitrex) fluticasone propionate 50 2 spray intranasal DAILY all ergy 03/02/24 mcg/actuation nasal symptoms #16 grams spray,suspension (Flonase Allergy Relief) onabotulinumtoxinA 100 unit 155 unit IM .[id number] #2 ea 04/18/24 solution for injection (Botox) ondansetron 8 mg disintegrating 8 mg PO Q8H PRN nausea and 06/23/24 tablet vomiting 5 days #15 tabs Allergies Allergy/AdvReac Type Severity Reaction Status Date / Time No Known Allergies Allergy Verified 10/31/24 02:30 Review of Systems 2 Narrative: Constitutional symptoms: Negative except as documented in HPI. Skin symptoms: Negative except as documented in HPI. Eye symptoms: Negative except as documented in HPI. ENMT symptoms: Negative except as documented in HPI. Respiratory symptoms: Negative except as documented in HPI. Cardiovascular symptoms: Negative except as documented in HPI. Gastrointestinal symptoms: Negative except as documented in HPI. Genitourinary symptoms: Negative except as documented in HPI. Musculoskeletal symptoms: Negative except as documented in HPI. Neurologic symptoms: Negative except as documented in HPI. Psychiatric symptoms: Negative except as documented in HPI. Endocrine symptoms: Negative except as documented in HPI. PFSH ED 2 PFSH: Medical History Cellulitis of thumb, right No pertinent family history Surgical History No pertinent past surgical history Social History (Reviewed 06/23/24 @ 13:56 by AALIYAH Lau Smoking and tobacco/nicotine status: current every day tobacco/nicotine user (VAPES) cigarettes Packs smoked per day: 1 Second hand smoke exposure: No Alcohol intake: never Substance/Drug Use: never Physical Exam 2 Narrative: EXAM NARRATIVE: General: Alert, no acute distress. Skin: Warm, dry. Head: Normocephalic, atraumatic. Neck: Supple, trachea midline. Eye: Extraocular movements are intact. Ears, nose, mouth and throat: mucosa moist. Cardiovascular: Regular, Normal peripheral perfusion. Respiratory: Lungs are clear to auscultation, respirations are non-labored, breath sounds are equal, Symmetrical chest wall expansion. Gastrointestinal: Soft, Nontender, Non distended Musculoskeletal: Normal ROM, no deformity. Neurological: Alert and oriented, No focal neurological deficit observed. Psychiatric: Cooperative, appropriate mood & affect. Course 2 Vital Signs: Vital signs: Vital Signs Temperature 98.6 F 10/31/24 02:22 Pulse Rate 110 H 10/31/24 03:59 Respiratory Rate 20 H 10/31/24 03:59 Blood Pressure 142/80 10/31/24 03:59 Pulse Oximetry 95 10/31/24 03:59 Oxygen Delivery Me thod Room Air 10/31/24 03:59 MDM - Nausea/Vomiting/Diarrhea Medical Decision Making Medical decision making: Differential diagnosis for this patient with nausea and vomiting including but not limited to and based on the above HPI, review of systems and physical exam: Urinary tract infection. Appendicitis. Cholecystitis. Colitis. small bowel obstruction. crohn's flare. pancreatitis. gastritis. peptic ulcer. cyclic vomiting. Viral illness. Influenza. COVID. Orders placed to evaluate differential diagnosis based on the above differential, HPI and physical exam Lab Review: Laboratory results were reviewed and interpreted by myself the emergency room physician. Mild leukocytosis. No anemia. BUN and creatinine are mildly elevated at 21.1. Lipase is [address] Martinez at shift change Lab Data 10/31/24 02:16 10/31/24 02:15 Radiology Impressions Abdomen/Pelvis CT 10/31/24 02:52 IMPRESSION: Diffuse hepatic steatosis which appears relatively acute from 09/13/2022. Clinical correlation is necessary for underlying possible hepatotoxic causes such as alcohol, medication, metabolic/inflammatory conditions, viruses. Laboratory Results WBC 16.62 10^3/uL (3.29-11.43) H 10/31/24 02:16 RBC 5.04 10^6/uL (3.85-5.65) 10/31/24 02:16 Hgb 15.50 g/dL (11.27-16.99) 10/31/24 02:16 Hct 44.9 % (37-53) 10/31/24 02:16 MCV 89.1 fl (82-101) 10/31/24 02:16 MCH 30.8 pg (27-33) 10/31/24 02:16 MCHC 34.5 g/dL (30-55) 10/31/24 02:16 RDW 12.8 % (12.1-15.1) 10/31/24 02:16 Plt Count 261 10^3/cmm (157-399) 10/31/24 02:16 MPV 10.1 fL (7.4-10.4) 10/31/24 02:16 Neut % (Auto) 78.2 % 10/31/24 02:16 Lymph % (Auto) 13.3 % 10/31/24 02:16 Barnes % (Auto) 7.1 % 10/31/24 02:16 Eos % (Auto) 0.5 % 10/31/24 02:16 Baso % (Auto) 0.5 % 10/31/24 02:16 Neut # (Auto) 13.00 10^3/uL (1.8-7.7) H 10/31/24 02:16 Lymph # (Auto) 2.2 10^3/uL (0.8-4.8) 10/31/24 02:16 Barnes # (Auto) 1.2 10^3/uL (0.2-0.9) H 10/31/24 02:16 Eos # (Auto) 0.1 10^3/uL (0.0-0.8) 10/31/24 02:16 Baso # (Auto) 0.1 10^3/uL (0.0-0.1) 10/31/24 02:16 Nucleated RBC % (auto) 0 % 10/31/24 02:16 Nucleated RBCs # 0.0 /100WBC 10/31/24 02:16 Sodium 137 mmol/L (136-145) 10/31/24 02:15 Potassium 4.3 mmol/L (3.5-5.1) 10/31/24 02:15 Chloride 99 mmol/L (98-107) 10/31/24 02:15 Carbon Dioxide 20 mmol/L (22-29) L 10/31/24 02:15 Anion Gap 22.3 (5-19) H 10/31/24 02:15 BUN 20 mg/dL (6-20) 10/31/24 02:15 Creatinine 1.1 mg/dL (0.7-1.2) 10/31/24 02:15 GFR Calculation 80.9 mL/min (90-130) L 10/31/24 02:15 Glucose 120 mg/dL (65-115) H 10/31/24 02:15 Calculated Osmolality 288 mOsm/kg (285-295) 10/31/24 02:15 Lactic Acid 3.6 mmol/L (0.5-2.2) H 10/31/24 02:16 Calcium 9.9 mg/dL (8.5-10.5) 10/31/24 02:15 Total Bilirubin 0.9 mg/dL (0.15-1.2) 10/31/24 02:15 AST 54 U/L (0-40) H 10/31/24 02:15 ALT 117 U/L (0-41) H 10/31/24 02:15 Alkaline Phosphatase 73 U/L (40-130) 10/31/24 02:15 C-Reactive Protein 11.0 mg/L (0.0-4.9) H 10/31/24 02:15 Total Protein 7.2 g/dL (6.6-8.7) 10/31/24 02:15 Albumin 4.3 g/dL (3.5-5.2) 10/31/24 02:15 Globulin 2.9 g/dL (1.3-4.6) 10/31/24 02:15 Lipase 43 U/L (13-60) 10/31/24 02:15 All radiology interpretation(s) finalized by discharge Discharge Plan Discharge Condition: Stable Prescriptions: No Action sumatriptan succinate [Imitrex] 100 mg tablet 100 mg PO ONCE Qty: 10 2RF fluticasone propionate [Flonase Allergy Relief] 50 mcg/actuation spray,suspension 2 spray intranasal DAILY Qty: 16 0RF Rx Instructions: administer into each nostril ondansetron 8 mg tablet,disintegrating 8 mg PO Q8H PRN (Reason: nausea and vomiting) 5 Days Qty: 15 0RF Botox 100 unit recon soln See Rx Instructions .ROUTE .COMPLEX Qty: 2 0RF Dose Instruction: Inject 155 units IM-31 sites, 5 units/site per FDA protocol: in procerus, in bilateral lifestyle consultant, frontalis (2 sites bilaterally),temporalis (4 sites bilateral), occipitalis (3 sites bilateral), paraspinosus cervical bilaterally (2 injections), trapezius (3 sites bilateral) Rx Instructions: Inject 155 units IM-31 sites, 5 units/site per FDA protocol: in procerus, in bilateral lifestyle consultant, frontalis (2 sites bilaterally),temporalis (4 sites bilateral), occipitalis (3 sites bilateral), paraspinosus cervical bilaterally (2 injections), trapezius (3 sites bilateral) Botox 100 unit recon soln 155 unit IM .[id number] Qty: 2 3RF Print Language: Malawian Coding Level of Care Code ED Trains Dispatcher Supervisor for Alex Galeana
[2024-10-31 04:08] LABS: Reflex Lactate Order REFLEX LACTIC ORDERD
[2024-10-31] MEDS: ondansetron 2 mg/ML SDV 2 mL 8 MG IVP (04:16)
[2024-10-31] MEDS: sodium chloride 0.9% 1,000 ML 999 ML IV (04:17)
[2024-10-31] MEDS: iohexol 350 mg/mL 500 mL Btl (per mL) IV (04:35)
--- NOTE | 2024-10-31 05:53 | USR_ITS ---
PROCEDURE INFORMATION: Exam: US Abdomen; Limited Exam date and time: 10/31/2024 6:22 AM Age: 28 years old Clinical indication: Abdominal pain; Localized; Right upper quadrant (ruq); Additional info: Right upper quadrant pain, concern for cholecystitis TECHNIQUE: Imaging protocol: Real time ultrasound of the abdomen with image documentation. Limited exam focused on the region of clinical interest. COMPARISON: CT abdomen pelvis w con* [id number] 10/31/2024 4:32 AM FINDINGS: Liver: Increased echogenicity of the liver suggests steatosis. Gallbladder: The gallbladder is normal without stones, sludge, or wall thickening. Right kidney: The right kidney appears normal. US/US gall bladder [id number] IMPRESSION: Hepatic steatosis.
--- NOTE | 2024-10-31 06:15 | ECG_ITS ---
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 Measurements Intervals [place] Rate: 107 P: 42 TX: 176 QRS: 98 QRSD: 101 T: -3 QT: 287 QTc: 384 Interpretive Statements SINUS TACHYCARDIA BORDERLINE RIGHT AXIS DEVIATION [QRS AXIS > 90] NONSPECIFIC ST & T-WAVE ABNORMALITY Compared to ECG 09/06/2021 13:03:02 T-wave abnormality now present First degree AV block no longer present Electronically Signed On 11-05-2024 11:51:53 CDT by Stan Mcfarlane M.D. [email or web address]
--- NOTE | 2024-10-31 06:16 | ED_ITS ---
HPI - Abdominal Pain 2 General: Chief Complaint: Nausea/Vomiting/Diarrhea Stated Complaint: Vomiting\Chills Time Seen by Provider: 10/31/24 03:45 History of Present Illness: 28-year-old male presents to the emergen cy room overnight. He assumed his care this morning. Nausea and vomiting began around 1:15 AM. He related to the staff when he first came in and that he had eaten some steak last night he said his symptoms actually got better after he vomited. He is complaining of diffuse abdominal pain slightly more prominent in the right upper quadrant no previous abdominal surgeries. No hematochezia melena hematemesis or coffee-ground emesis. He denies dysuria urgency or frequency. He has had issues with constipation in the past with last bowel movement was 2 days ago. No known history of acute hepatitis. Associated Symptoms: Reports nausea and vomiting; Denies chills, coffee ground emesis, dysuria, fever(s), hematochezia, hematemesis and melena Related Data Previous Rx's ?Medication ?Instructions ?Recorded onabotulinumtoxinA 100 unit See Rx Instructions .Route 07/07/23 solution for injection (Botox) .COMPLEX #2 ea sumatriptan succinate 100 mg 100 mg PO ONCE #10 tabs 0 02/08/24 tablet (Imitrex) fluticasone propionate 50 2 spray intranasal DAILY all ergy 03/02/24 mcg/actuation nasal symptoms #16 grams spray,suspension (Flonase Allergy Relief) onabotulinumtoxinA 100 unit 155 unit IM .[id number] #2 ea 04/18/24 solution for injection (Botox) ondansetron 8 mg disintegrating 8 mg PO Q8H PRN nausea and 06/23/24 tablet vomiting 5 days #15 tabs Allergies Allergy/AdvReac Type Severity Reaction Status Date / Time No Known Allergies Allergy Verified 10/31/24 02:30 Review of Systems 2 Const: Denies: fever(s) or chills Card: Denies: chest pain Resp: Denies: dyspnea GI: Reports: abdominal pain, nausea and vomiting; Denies: hematemesis, coffee ground emesis, hematochezia or melena : Denies: dysuria, urinary frequency or urinary urgency Musc: Denies: neck pain or back pain Skin/Breast: Denies: rash PFSH ED 2 PFSH: Medical History Cellulitis of thumb, right No pertinent family history Surgical History No pertinent past surgical history Social History Smoking and tobacco/nicotine status: current every day tobacco/nicotine user (VAPES) cigarettes Packs smoked per day: 1 Second hand smoke exposure: No Alcohol intake: never Substance/Drug Use: never Physical Exam 2 Const: GENERAL APPEARANCE: cooperative ORIENTATION/CONSCIOUSNESS: Yes awake, Yes oriented to person, Yes oriented to place and Yes oriented to time HENMT: COMMON NORMALS: normocephalic, atraumatic and hearing grossly normal bilaterally HEAD & SCALP: normocephalic and atraumatic Resp: COMMON NORMALS: normal respiratory effort, No retractions, No use of accessory muscles and clear to auscultation bilaterally AUSCULTATION: clear to auscultation bilaterally Cardio: COMMON NORMALS: No murmurs present (Cardio) RATE: tachycardic GI: COMMON NORMALS: No hepatosplenomegaly present AUSCULTATION: Yes normoactive bowel sounds PALPATION: Yes Tenderness to palpation present (GI) (Generally diffuse slightly more specific RUQ positive Anderson's), No Guarding due to palpation present (GI) and Yes No hepatosplenomegaly present Extremity: COMMON NORMALS: normal to inspection, capillary refill normal, no clubbing, cyanosis or edema, no calf tenderness and no pedal edema Neuro: SENSORIUM/ORIENTATION: Yes oriented to person, Yes oriented to place and Yes oriented to time Skin: COMMON NORMALS: no rashes or lesions noted GENERAL SKIN EXAM: no rashes or lesions noted Course 2 Vital Signs: Vital signs: Vital Signs Temperature 98.6 F 10/31/24 02:22 Pulse Rate 110 H 10/31/24 06:25 Respiratory Rate 22 H 10/31/24 06:25 Blood Pressure 142/80 10/31/24 06:25 Pulse Oximetry 99 10/31/24 06:25 Oxygen Delivery Me thod Room Air 10/31/24 03:59 MDM - Abdominal Pain Medical Decision Making Patient presents with diffuse abdominal pain and nausea. He is somewhat improved from earlier. He still having significant amount of pain and nausea although he has not vomited. CT showed some diffuse what looks like acute hepatosteatosis. He has an AST of 54 and ALT of 117 and his alk phos and T. bili are normal his lipase was normal his initial lactic acid is 3.6 white count is 16,000 with a left shift. Patient has had blood cultures and has had a liter of normal saline we will give him an additional 30 mL/kg based off his ideal body weight. With initial dose of Zosyn. Acute hepatitis panel has been ordered, perform gallbladder ultrasound. Hepatitis panel is negative. Urine was also negative. Preliminary on ultrasound is unremarkable beyond the hepatic steatosis. Based on his elevated white count and liver enzymes mild and anion gap and lactic acidosis will admit. He has been given a sepsis bolus cultured and started on antibiotics consult surgery admit to hospitalist. Ketones also pending at this time blood glucose is 120 and his anion gap is 22 Medical Records I reviewed the patient's medical records. Lab Data I reviewed the patient's lab results. 10/31/24 02:16 10/31/24 02:15 Labs/Radiology: Radiology Impressions Abdomen/Pelvis CT 10/31/24 02:52 IMPRESSION: Diffuse hepatic steatosis which appears relatively acute from 09/13/2022. Clinical correlation is necessary for underlying possible hepatotoxic causes such as alcohol, medication, metabolic/inflammatory conditions, viruses. Laboratory Results WBC 16.62 10^3/uL (3.29-11.43) H 10/31/24 02:16 RBC 5.04 10^6/uL (3.85-5.65) 10/31/24 02:16 Hgb 15.50 g/dL (11.27-16.99) 10/31/24 02:16 Hct 44.9 % (37-53) 10/31/24 02:16 MCV 89.1 fl (82-101) 10/31/24 02:16 MCH 30.8 pg (27-33) 10/31/24 02:16 MCHC 34.5 g/dL (30-55) 10/31/24 02:16 RDW 12.8 % (12.1-15.1) 10/31/24 02:16 Plt Count 261 10^3/cmm (157-399) 10/31/24 02:16 MPV 10.1 fL (7.4-10.4) 10/31/24 02:16 Neut % (Auto) 78.2 % 10/31/24 02:16 Lymph % (Auto) 13.3 % 10/31/24 02:16 [place] % (Auto) 7.1 % 10/31/24 02:16 Eos % (Auto) 0.5 % 10/31/24 02:16 Baso % (Auto) 0.5 % 10/31/24 02:16 Neut # (Auto) 13.00 10^3/uL (1.8-7.7) H 10/31/24 02:16 Lymph # (Auto) 2.2 10^3/uL (0.8-4.8) 10/31/24 02:16 [place] # (Auto) 1.2 10^3/uL (0.2-0.9) H 10/31/24 02:16 Eos # (Auto) 0.1 10^3/uL (0.0-0.8) 10/31/24 02:16 Baso # (Auto) 0.1 10^3/uL (0.0-0.1) 10/31/24 02:16 Nucleated RBC % (auto) 0 % 10/31/24 02:16 Nucleated RBCs # 0.0 /100WBC 10/31/24 02:16 Sodium 137 mmol/L (136-145) 10/31/24 02:15 Potassium 4.3 mmol/L (3.5-5.1) 10/31/24 02:15 Chloride 99 mmol/L (98-107) 10/31/24 02:15 Carbon Dioxide 20 mmol/L (22-29) L 10/31/24 02:15 Anion Gap 22.3 (5-19) H 10/31/24 02:15 BUN 20 mg/dL (6-20) 10/31/24 02:15 Creatinine 1.1 mg/dL (0.7-1.2) 10/31/24 02:15 GFR Calculation 80.9 mL/min (90-130) L 10/31/24 02:15 Glucose 120 mg/dL (65-115) H 10/31/24 02:15 Calculated Osmolality 288 mOsm/kg (285-295) 10/31/24 02:15 Lactic Acid 3.6 mmol/L (0.5-2.2) H 10/31/24 02:16 Lactic Acid (Sepsis) 2.9 mmol/L (0.5-2.2) H 10/31/24 05:16 Calcium 9.9 mg/dL (8.5-10.5) 10/31/24 02:15 Total Bilirubin 0.9 mg/dL (0.15-1.2) 10/31/24 02:15 AST 54 U/L (0-40) H 10/31/24 02:15 ALT 117 U/L (0-41) H 10/31/24 02:15 Alkaline Phosphatase 73 U/L (40-130) 10/31/24 02:15 C-Reactive Protein 11.0 mg/L (0.0-4.9) H 10/31/24 02:15 Total Protein 7.2 g/dL (6.6-8.7) 10/31/24 02:15 Albumin 4.3 g/dL (3.5-5.2) 10/31/24 02:15 Globulin 2.9 g/dL (1.3-4.6) 10/31/24 02:15 Lipase 43 U/L (13-60) 10/31/24 02:15 Urine Color Yellow (Yellow) 10/31/24 06:13 Urine Appearance Clear (CLEAR) 10/31/24 06:13 Urine pH 7.5 (5-7) 10/31/24 06:13 Ur Specific [place] 1.052 (1.005-1.030) H 10/31/24 06:13 Urine Protein Trace (Negative) A 10/31/24 06:13 Urine Glucose (UA) Negative (Normal) 10/31/24 06:13 Urine Ketones Negative (Negative) 10/31/24 06:13 Urine Blood Negative (Negative) 10/31/24 06:13 Urine Nitrate Negative (Negative) 10/31/24 06:13 Urine Bilirubin Negative (Negative) 10/31/24 06:13 Urine Urobilinogen 1.0 mg/dL (Negative) 10/31/24 06:13 Ur Leukocyte Esterase Negative (Negative) 10/31/24 06:13 Urine RBC 0-2 /hpf (0-2) 10/31/24 06:13 Urine WBC 0-5 /hpf (0-5) 10/31/24 06:13 Ur Squamous Epith Cells 0-5 /hpf (0-5) 10/31/24 06:13 Amorphous Sediment Not Reportable 10/31/24 06:13 Urine Bacteria None seen /hpf (NONE) 10/31/24 06:13 Hyaline Casts 0.40 /lpf 10/31/24 06:13 Urine Opiates Screen Negative ng/mL (Negative) 10/31/24 06:13 Ur Barbiturates Screen Negative ng/mL (Negative) 10/31/24 06:13 Ur Phencyclidine Scrn Negative ng/mL (Negative) 10/31/24 06:13 Ur Amphetamines Screen Negative ng/mL (Negative) 10/31/24 06:13 U Benzodiazepines Scrn Negative ng/mL (Negative) 10/31/24 06:13 Urine Cocaine Screen Negative ng/mL (Negative) 10/31/24 06:13 U Marijuana (THC) Screen Negative ng/mL (Negative) 10/31/24 06:13 Hepatitis A IgM Ab Non-reactive (Nonreactive) 10/31/24 02:16 Hep Bs Antigen Non-reactive (Nonreactive) 10/31/24 02:16 Hep B Core IgM Ab Non-reactive (Nonreactive) 10/31/24 02:16 Hepatitis C Antibody Non-reactive (Nonreactive) 10/31/24 02:16 All radiology interpretation(s) finalized by discharge EKG Data EKG 1: Interpretation: EKG 10/31/2024 6:20 AM: Sinus tachycardia with a rate of [address] elevation rate related nonspecific ST changes. Compared to EKG of 09/06/2021 first-degree AV block on previous EKG no longer seen patient was in sinus tachycardia at that time as well, otherwise no acute changes from previous EKG Discharge Plan Discharge Patient Disposition: Placed in Observation Clinical Impression: Abdominal pain, Acute lactic acidosis, Elevated liver enzymes, Sepsis Coding Level of Care Code ED Member Service Representative for Alex Galeana
[2024-10-31 06:22] LABS: Bilirubin Urine Negative (Negative); Blood Urine Negative (Negative); Glucose Urine UA Negative (Normal); Ketones Urine Negative (Negative); Leukocyte Esterase Urine Negative (Negative); Nitrate Urine Negative (Negative); Protein Urine Trace (Negative); Urine Appearance Clear (CLEAR); Urine Color Yellow (Yellow); pH Urine 7.5 (5-7)
[2024-10-31] MEDS: piperacillin-tazobactam 3.375 GM in sodium chloride 0.9% (plus) 50 ML IV ×3 (06:24→23:29)
[2024-10-31] MEDS: sodium chloride 0.9% 2,190 ML 2190 ML IV (06:24)
[2024-10-31 06:25] LABS: Bacteria Urine None Seen /hpf; RBC Urine 0-2 /hpf (0-2); Squamous Epithelial Cell Urine 0-5 /hpf (0-5); WBC Urine 0-5 /hpf (0-5)
[2024-10-31 06:28] LABS: Amphetamines Screen Urine Negative (Negative); Barbiturates Screen Urine Negative (Negative); Benzodiazepines Screen Urine Negative (Negative); Cocaine Screen Urine Negative (Negative); Opiate Screen Urine Negative (Negative); PCP Screen Urine Negative (Negative); Specific Gravity, Urine 1.052 (1.005-1.030); THC Screen Urine Negative (Negative)
[2024-10-31 06:34] LABS: Lactic Acid level (Lactate) 2.9 mmol/L (0.5-2.2)
[2024-10-31 07:03] LABS: Hepatitis A Antibody IgM Non-Reactive (Nonreactive); Hepatitis B Core IgM Non-Reactive (Nonreactive); Hepatitis B Surface Antigen Non-Reactive (Nonreactive); Hepatitis C Virus Antibody Non-Reactive (Nonreactive)
--- NOTE | 2024-10-31 07:15 | XRR_ITS ---
PROCEDURE INFORMATION: Exam: XR Chest Exam date and time: 10/31/2024 7:21 AM Age: 28 years old Clinical indication: Abnormal findings; Abnormal diagnostic tests; Other: Leukocytosis; --pt presents to ED C/O n/v that began tonight. PT denies diarrhea. PT denies specific location of abd pain, but does have generalized abd pain. PT has gallbladder, appendix. PT denies dm, sick contacts, states illness came on suddenly. TECHNIQUE: Imaging protocol: Radiologic exam of the chest. Views: 1 view. COMPARISON: CT chest abdpel w/*[id number] 09/13/2022 9:32 AM FINDINGS: Lungs: Unremarkable. No consolidation. Pleural spaces: Unremarkable. No pleural effusion. No pneumothorax. Heart/Mediastinum: Unremarkable. No cardiomegaly. Bones/joints: Unremarkable. XR/XR chest 1V portable [id number] IMPRESSION: No acute findings.
[2024-10-31 07:30] LABS: Ketone (Acetest) Serum Negative (Negative)
--- NOTE | 2024-10-31 09:10 | P.HP_ITS ---
Providers/Chief Complaint 2 Admitting Physician: Jostin Tarango Chief Complaint: Vomiting\Chills History of Present Illness Estrada Hughes is a 28 year old male with history of migraine headaches presents with acute onset nausea and vomiting that began around midnight last night. Prior to this, the patient was feeling well, went to work, and spent most of the day outside helping their [id number]. The patient reports eating steak, mac and cheese, and mashed potatoes for dinner, with no salads or foods containing mayonnaise. The patient denies diarrhea but notes some abdominal rumbling and concern about possibly developing diarrhea. The patient drinks only bottled water. There is a history of consuming bad farah a few days ago, but the provider notes that illness from that would likely have occurred sooner. The patient is noted to be dehydrated and unable to eat or drink much. No other family members are reported to be ill. No mention of fever, chills, chest pain, shortness of breath, or other systemic symptoms. Denies any tick bites. He reports taking six 200 mg ibuprofen tablets and four 500 mg acetaminophen tablets for several days, and states that he takes this regimen fairly often. He states that he is cut down on ibuprofen use to take up to 10 tablets. Review of Systems 2 Const: Reports: malaise; Denies: fever(s), chills or body aches ENMT: Denies: throat pain Card: Denies: chest pain, edema, pre-syncope or dyspnea on exertion Resp: Denies: dyspnea, productive cough, change in phlegm color or hemoptysis GI: Reports: nausea and vomiting; Denies: abdominal pain, diarrhea, constipation, hematochezia or melena : Denies: flank pain, difficulty urinating, urinary frequency or hematuria Musc: Denies: back pain, joint swelling or joint redness Skin/Breast: Denies: rash or new lesions Neuro: Denies: headache(s) or confusion Medications/Allergies Home Medications ?Medication ?Instructions ?Recorded ?Confirmed ?Last Taken ?Type onabotulinumtoxinA 100 unit See Rx Instructions .Route 07/07/23 10/31/24 Unknown Rx solution for injection (Botox) .COMPLEX #2 ea fluticasone propionate 50 2 spray intranasal DAILY all ergy 03/02/24 10/31/24 Unknown Rx mcg/actuation nasal symptoms #16 grams spray,suspension (Flonase Allergy Relief) cetirizine 10 mg tablet 10 mg PO DAILY PRN Nasal Con gestion 10/31/24 10/31/24 Unknown History sumatriptan succinate 100 mg 100 mg PO DAILY PRN Migra ine 10/31/24 10/31/24 Unknown History tablet (Imitrex) Headache Allergies Allergy/AdvReac Type Severity Reaction Status Date / Time No Known Allergies Allergy Verified 10/31/24 02:30 PFSH Acute 2 PFSH: Medical History Chronic migraine without aura, intractable, with status migrainosus Lisfranc fracture Cellulitis of thumb, right No pertinent family history Surgical History S/P foot surgery No pertinent past surgical history Social History Smoking and tobacco/nicotine status: current every day tobacco/nicotine user (VAPES) cigarettes Packs smoked per day: 1 Second hand smoke exposure: No Alcohol intake: never Substance/Drug Use: never Vitals/I&O/Wt Last Vital Signs Temp 98.6 F 10/31/24 02:22 Pulse 106 H 10/31/24 08:30 Resp 22 H 10/31/24 08:30 BP 102/67 10/31/24 08:30 Pulse Ox 97 10/31/24 08:30 O2 Del Method Room Air 10/31/24 03:59 10/30/24 10/31/24 10/31/24 22:59 06:59 14:59 Intake Total 1000 / 1000 Balance 1000 / 1000 Weight last 48 hrs Weight 127.006 kg Physical Exam 2 Const: COMMON NORMALS: patient oriented x3 and alert GENERAL APPEARANCE: c ooperative NUTRITIONAL APPEARANCE: obese ORIENTATION/CONSCIOUSNESS: Yes awake HENMT: COMMON NORMALS: oropharynx normal Neck/C-Spine: COMMON NORMALS: no JVD Resp: COMMON NORMALS: normal respiratory effort and clear to auscultation bilaterally AUSCULTATION: clear to auscultation bilaterally Cardio: COMMON NORMALS: no JVD, regular rhythm, S1 normal heart sound present, S2 normal heart sound present and No murmurs present (Cardio) RHYTHM: regular rhythm HEART SOUNDS: S1 normal heart sound present and S2 normal heart sound present GI: COMMON NORMALS: Normal to inspection, nondistended, normoactive bowel sounds present, Soft to palpation and non-tender PALPATION: Yes Soft to palpation Extremity: COMMON NORMALS: no joint enlargement and no pedal edema Neuro: COMMON NORMALS: patient oriented x3 and moves all extremities S ENSORIUM/ORIENTATION: Yes alert Skin: COMMON NORMALS: no rashes or lesions noted GENERAL SKIN EXAM: no rashes or lesions noted Quick SOFA Score: Respiratory Rate: 22 Blood Pressure: 102/67 [place] Coma Scale: 15 qSOFA Score: 1 If qSOFA score 2 or greater, continue: Blood Pressure Mean: 78 Bilirubin (mg/dl): 0.9 Platelets (x10?/ml): 261 Creatinine (mg/dl): 1.1 Evaluation: Current stage of sepsis: sepsis Sepsis stage criteria used: [facility] Sep-1 and Sepsis-3 Focused Exam: Vital signs: Temp Pulse Resp BP Pulse Ox O2 Del Method 10/31/24 08:30 106 H 22 H 102/67 97 10/31/24 06:25 110 H 22 H 142/80 99 10/31/24 03:59 110 H 20 H 142/80 95 Room Air 10/31/24 02:22 98.6 F 129 H 18 124/76 97 Room Air Details: He is awake and alert, without cyanosis or mottling. Good capillary refill. Date exam was performed: 10/31/24 Time exam was performed: 10:31 2 Sepsis Screen No Definite Risk Today, 08:30 Respiratory Rate, (12 - 18) 22 breaths/min H Today, 08:30 Blood Pressure 102/67 mmHg Today, 08:30 [place] Coma Scale Score 15 Today, 08:30 Quick SOFA Score 1 Today, 08:30 SOFA Score: 2 Yusra Coma Scale Score 15 Today, 08:30 Blood Pressure Mean 78 mmHg Today, 08:30 Total Bilirubin, (0.15-1.2) 0.9 mg/dL Today, 02:15 Platelet Count, (157-399) 261 10^3/cmm Today, 02:16 Creatinine, (0.7-1.2) 1.1 mg/dL Today, 02:15 Data 10/31/24 02:16 10/31/24 02:15 Micro: Microbiology 10/31/24 02:16 Blood Culture - Preliminary Blood SPECIMEN COLLECTED 10/31/24 02:15 Blood Culture - Preliminary Blood SPECIMEN COLLECTED A&P Assessment and plan (1) Gastroenteritis: The patient has acute onset nausea and vomiting since midnight, with inability to eat or drink and signs of dehydration. No diarrhea at present, but abdominal rumbling is noted. The etiology is unclear but may be related to recent food intake (steak, mac and cheese, mashed potatoes) or possible food poisoning. No other family members are ill. The patient drinks only bottled water. Liver numbers are elevated, but bilirubin is normal. An ultrasound of the liver has been ordered to further evaluate the cause. Differential includes gastroenteritis, possibly foodborne, and less likely from bad farah consumed a few days ago as symptoms would have appeared sooner. He reports taking six 200 mg ibuprofen tablets and four 500 mg acetaminophen tablets for several days, and states that he takes this regimen fairly often. He states that he is cut down on ibuprofen use to take up to 10 tablets. Discussed possibility of NSAID induced gastritis. Surgery has also been consulted. Discussed with surgeon, appreciate consultation. Reviewed vitals, CBC, CMP, lipase, lactic acid, UA, UDS, hepatitis panel, CT abdomen pelvis, with noted new start hepatitis compared to September, gallbladder ultrasound, chest x-ray, ER provider note, discussed with ER provider, discussed with general surgeon. Will give IV PPI twice daily possible NSAID induced gastritis/PUD. Monitor for any hematemesis. Reassess blood counts. No diarrhea so far, will check extended viral panel, assess for possible viral gastroenteritis. Also had blood work yesterday, possible other gastroenteritis. No diarrhea so far, obtain stool sample if develops diarrhea. Additionally follow-up liver enzymes, stop NSAIDs and Tylenol for now with chronic use, concern for possible chronic Tylenol toxicity turning into acute liver dysfunction, monitor for acute liver failure. Zofran as needed for nausea. Bowel rest for now, n.p.o. with sips chips and meds. Continue IV fluid hydration, NS at 150 mL/h, monitor for risk of fluid overload. (2) Elevated liver enzymes: Noted acute transaminitis, AST 54, ALT 117. Does take chronic NSAID and acetaminophen, concern for possible toxicity secondary to acetaminophen and/or NSAID. Acetaminophen level is not elevated. With possible chronic toxicity for now started N-acetylcysteine as a precaution, discussed with pharmacist. Follow-up liver parameters. Obtain INR. Check CK with possibility of rhabdomyolysis with nausea vomiting dehydration. He only occasionally drinks alcohol, was at a [address], had 2 wine coolers. Denies substance use, UDS unremarkable. Reviewed gallbladder ultrasound. CT scan with finding of [place] hepatitis compared to September. He denies tick bites, however, was at a [facility] yesterday, requested panel. Empiric doxycycline. Monitor for risk of acute liver failure. Discussed with him and his need for hospitalization, potential for severe and/or/or life-threatening developing condition. (3) Acute lactic acidosis: With gastroenteritis, poor oral intake, nausea vomiting, dehydration and steatohepatitis. Received fluid bolus. Less likely sepsis, received empiric antibiotic with Zosyn. With noted sinus tachycardia 106. Continue Zosyn empirically for now, monitor for risk of acute injury, C. difficile. Reassess blood counts. Follow-up blood culture. Plan Case management consulted, regarding PCP, insurance. PDMP PDMP Reviewed: Not Reviewed Attestations 2 Medical Necessity Statement*: Place in observation for additional assessment management of nausea, vomiting, dehydration, new transaminitis with possible acute liver injury, monitor for acute liver failure with chronic Tylenol use and possible toxicity with Tylenol and NSAID, with acute hepatic steatosis on CT. and High MDM includes amount and/or complexity of data reviewed/ordered [ previous or external records, resulted lab(s)/test(s), ordered lab(s)/test(s) and other healthcare professional discussion] and described risk of complication, morbidity or mortality of management as documented Diagnoses Gastroenteritis K52.9 Elevated liver enzymes R74.8 Acute lactic acidosis E87.21
--- NOTE | 2024-10-31 09:19 | P.CONIM_ITS ---
Providers/Reason For Consult 2 Consulting Physician/Specialty*: General Surgery Reason for Consult*: Abdominal pain and vomiting Attending Physician: Jostin Tarango History of Present Illness History of Present Illness Estrada Hughes is a 28 year old male Who presents to the hospital with some right upper quadrant abdominal pain and vomiting, he denies any previous history of gallbladder disease and no other GI issues. According to him he ate some barbecue yesterday night after that he had some vomiting abdominal pain and apparently starting to have some diarrhea. Workup in the ED was unremarkable in terms of imaging of the gallbladder which was completely normal but it shows hepatic steatosis and he has elevated liver enzymes including AST and ALT. Bilirubin is normal. The white count is 16. Review of Systems 2 General: Reports: 10 or more systems reviewed and unremarkable except in HPI and below Medications/Allergies Home Medications ?Medication ?Instructions ?Recorded ?Confirmed ?Last Taken ?Type onabotulinumtoxinA 100 unit See Rx Instructions .Route 07/07/23 10/31/24 Unknown Rx solution for injection (Botox) .COMPLEX #2 ea fluticasone propionate 50 2 spray intranasal DAILY all ergy 03/02/24 10/31/24 Unknown Rx mcg/actuation nasal symptoms #16 grams spray,suspension (Flonase Allergy Relief) cetirizine 10 mg tablet 10 mg PO DAILY PRN Nasal Con gestion 10/31/24 10/31/24 Unknown History sumatriptan succinate 100 mg 100 mg PO DAILY PRN Migra ine 10/31/24 10/31/24 Unknown History tablet (Imitrex) Headache Allergies Allergy/AdvReac Type Severity Reaction Status Date / Time No Known Allergies Allergy Verified 10/31/24 02:30 PFSH Acute 2 PFSH: Medical History Cellulitis of thumb, right No pertinent family history Surgical History No pertinent past surgical history Social History Smoking and tobacco/nicotine status: current every day tobacco/nicotine user (VAPES) cigarettes Packs smoked per day: 1 Second hand smoke exposure: No Alcohol intake: never Substance/Drug Use: never Vitals/I&O/Wt Last Vital Signs Temp 98.6 F 10/31/24 02:22 Pulse 106 H 10/31/24 08:30 Resp 22 H 10/31/24 08:30 BP 102/67 10/31/24 08:30 Pulse Ox 97 10/31/24 08:30 O2 Del Method Room Air 10/31/24 03:59 10/30/24 10/31/24 10/31/24 22:59 06:59 14:59 Intake Total 1000 / 1000 Balance 1000 / 1000 Weight last 48 hrs Weight 280 lb Physical Exam 2 GI: OTHER: Abdominal examination is benign the abdomen is soft There is mild tenderness in the right upper quadrant nondistended. Data 10/31/24 02:16 10/31/24 02:15 Micro: Microbiology 10/31/24 02:16 Blood Culture - Preliminary Blood SPECIMEN COLLECTED 10/31/24 02:15 Blood Culture - Preliminary Blood SPECIMEN COLLECTED A&P Assessment and plan (1) Abdominal pain: (2) Elevated liver enzymes: (3) Gastroenteritis: (4) Acute lactic acidosis: Plan After complete history physical examination and review of all available clinical data following is my assessment. Patient symptoms appear to be more likely related to acute hepatitis and gastroenteritis rather than biliary pathology. Gallbladder is normal in both ultrasound and CT of the abdomen and pelvis. There is no stones and gallbladder wall is normal. Most likely source of hepatic compromise will be either medication related as patient has a high intake of Tylenol or ibuprofen versus viral. No general surgery intervention is recommended at this time, I agree with management by medical team. In the case of changes in clinical status general surgery will be remaining available for possible upper endoscopy. PDMP PDMP Reviewed: Not Reviewed Coding Level of Care Code 00354 Diagnoses Abdominal pain R10.9 Elevated liver enzymes R74.8 Gastroenteritis K52.9 Acute lactic acidosis E87.21
[2024-10-31 09:46] LABS: Acetaminophen < 5.0 ug/mL (10-30)
[2024-10-31] MEDS: pantoprazole 40 mg SDV IVP ×2 (10:17→20:44)
[2024-10-31] MEDS: acetylcysteine 15,000 MG in dextrose 5% 250 ML 325 MG IV (10:37)
[2024-10-31] MEDS: sodium chloride 0.9% 1,000 ML 150 ML IV ×3 (10:38→20:45)
[2024-10-31 11:01] LABS: Estmated Average Glucose 108; Hemoglobin A1C 5.4 % (4.0-6.0)
[2024-10-31 11:11] LABS: INR 0.95 (0.8-1.2)
[2024-10-31] MEDS: doxycycline 100 MG in sodium chloride 0.9% (plus) 100 ML IV ×2 (11:36→22:19)
[2024-10-31 14:14] LABS: Adenovirus Not Detected (NOT DETECT); Chlamydia Pneumoniae Not Detected (NOT DETECT); Coronavirus 229E,HKU1,NL63,OC4 Not Detected (NOT DETECT); Human Metapneumovirus Not Detected (NOT DETECT); Human Rhinovirus/Enterovirus Not Detected (NOT DETECT); Influenza A Not Detected (NOT DETECT); Influenza A H1 Not Detected (NOT DETECT); Influenza A H1-2009 Not Detected (NOT DETECT); Influenza A H3 Not Detected (NOT DETECT); Influenza B Not Detected (NOT DETECT); Mycoplasma Pneumoniae Not Detected (NOT DETECT); Parainfluenza Virus Type 1 Not Detected (NOT DETECT); Parainfluenza Virus Type 2 Not Detected (NOT DETECT); Parainfluenza Virus Type 3 Not Detected (NOT DETECT); Parainfluenza Virus Type 4 Not Detected (NOT DETECT); Respiratory Syncytial Virus A Not Detected (NOT DETECT); Respiratory Syncytial Virus B Not Detected (NOT DETECT); SARS-COV-2 Not Detected (NOT DETECT)
[2024-10-31 15:14] LABS: Creatine Phosphokinase 288 U/L (39-308)
[2024-10-31 18:00] LABS: Alanine Aminotransferase 83 U/L (0-41); Albumin Level 3.7 g/dL (3.5-5.2); Alkaline Phosphatase 51 U/L (40-130); Anion Gap 16.7 (5-19); Aspartate Amino Transferase 32 U/L (0-40); Blood Urea Nitrogen 12 mg/dL (6-20); Calcium 8.6 mg/dL (8.5-10.5); Carbon Dioxide 22 mmol/L (22-29); Chloride 105 mmol/L (98-107); Creatinine Clr Calc Pharmacy 149.7871; Globulin 2.4 g/dL (1.3-4.6); Glomerular Filtration Rate 90.3 mL/min (90-130); Glucose 101 mg/dL (65-115); Osmolality Calculated 290 mOsm/kg (285-295); Potassium 3.7 mmol/L (3.5-5.1); Sodium 140 mmol/L (136-145); Total Bilirubin 1.3 mg/dL (0.15-1.2); Total Protein 6.1 g/dL (6.6-8.7)
[2024-10-31] MEDS: enoxaparin 40 mg/0.4 mL Syringe SUBCUT (18:05)
[2024-11-01] MEDS: ketorolac 30 mg/mL INJ IVP (03:13)
[2024-11-01 04:00] VITALS: BP 103/66; PULSE 72; RESP 16; TEMP 36.5; O2SAT 94
[2024-11-01] MEDS: piperacillin-tazobactam 3.375 GM in sodium chloride 0.9% (plus) 50 ML IV (05:43)
[2024-11-01 06:07] LABS: Basophils # 0.1 10^3/uL (0.0-0.1); Basophils % 0.6 %; Eosinophils # 0.1 10^3/uL (0.0-0.8); Eosinophils % 0.5 %; Lymphocytes % 18.4 %; Mean Corpuscular HGB Conc 33.6 g/dL (30-55); Mean Corpuscular Hemoglobin 30.9 pg (27-33); Mean Corpuscular Volume 92.1 fl (82-101); Monocytes # 0.8 10^3/uL (0.2-0.9); Monocytes % 7.5 %; Neutrophils # 7.76 10^3/uL (1.8-7.7); Neutrophils % 72.6 %; Nucleated Red Blood Cells % 0 %; Platelet Count 214 10^3/cmm (157-399); Red Blood Count 4.56 10^6/uL (3.85-5.65); Red Cell Distribution Width 12.9 % (12.1-15.1); White Blood Count 10.68 10^3/uL (3.29-11.43)
[2024-11-01] MEDS: sodium chloride 0.9% 1,000 ML 150 ML IV (06:19)
[2024-11-01 06:27] LABS: Alanine Aminotransferase 78 U/L (0-41); Albumin Level 3.7 g/dL (3.5-5.2); Alkaline Phosphatase 53 U/L (40-130); Aspartate Amino Transferase 29 U/L (0-40); Blood Urea Nitrogen 10 mg/dL (6-20); Calcium 8.8 mg/dL (8.5-10.5); Carbon Dioxide 18 mmol/L (22-29); Chloride 105 mmol/L (98-107); Creatinine Clr Calc Pharmacy 169.0796; Globulin 2.5 g/dL (1.3-4.6); Glucose 114 mg/dL (65-115); Osmolality Calculated 286 mOsm/kg (285-295); Sodium 138 mmol/L (136-145); Total Protein 6.2 g/dL (6.6-8.7)
[2024-11-01 07:10] VITALS: PULSE 72
[2024-11-01 07:19] VITALS: BP 136/92; PULSE 79; RESP 18; TEMP 36.6; O2SAT 97
--- NOTE | 2024-11-01 08:00 | PM.DCS ---
Discharge Providers Date of Admission: 10/31/24 07:39 Date of Discharge: November 01, 2024 Attending Provider at Admission: Jostin Tarango Attending Provider at Discharge: Jostin Tarango Diagnoses at Discharge Discharge Diagnosis (1) Gastroenteritis: Status: Acute (2) Elevated liver enzymes: Status: Acute (3) Acute lactic acidosis: Status: Acute Reason for Visit Reason for Visit: Vomiting\Chills Brief History: Estrada Hughes is a 28 year old male with history of migraine headaches presents with acute onset nausea and vomiting that began around midnight last night. Prior to this, the patient was feeling well, went to work, and spent most of the day outside helping their [id number]. The patient reports eating steak, mac and cheese, and mashed potatoes for dinner, with no salads or foods containing mayonnaise. The patient denies diarrhea but notes some abdominal rumbling and concern about possibly developing diarrhea. The patient drinks only bottled water. There is a history of consuming bad farah a few days ago, but the provider notes that illness from that would likely have occurred sooner. The patient is noted to be dehydrated and unable to eat or drink much. No other family members are reported to be ill. No mention of fever, chills, chest pain, shortness of breath, or other systemic symptoms. Denies any tick bites. He reports taking six 200 mg ibuprofen tablets and four 500 mg acetaminophen tablets for several days, and states that he takes this regimen fairly often. He states that he is cut down on ibuprofen use to take up to 10 tablets. Hospital Course Hospital Course He was placed on bowel rest, treated with IV PPI, IV hydration, acetylcysteine with concern for possible chronic Tylenol toxicity with new steatohepatitis on CT, as well as transaminitis, broader viral panel was obtained which was negative, gallbladder ultrasound showing stat hepatitis otherwise unremarkable. Viral hepatitis panel negative. Possible gastroenteritis, did not develop diarrhea. Nausea vomiting resolved. He was able to trial clear liquids successfully. With your system and liver parameters showing improvement. Acetylcysteine discontinued. Discussed with him and his and mother risk of acetaminophen and NSAIDs liver toxicity. Limiting either to short burst. Possible gastritis secondary to NSAID as well. He will complete 6 weeks of PPI. In case of persistent or recurrent symptoms please reassess and refer for endoscopy. Tickborne illness considered as well, he will complete empiric course of doxycycline. Please follow-up tick panel results. Please visit with him regarding stat hepatitis, assist him and modify risk factors and follow-up for resolution and/or progression. Physical Exam Narrative: Accompanied by his and mother. Const: COMMON NORMALS: patient oriented x3 and alert GENERAL APPEARANCE: cooperative ORIENTATION/CONSCIOUSNESS: Yes awake HENMT: COMMON NORMALS: oropharynx normal Neck/C-Spine: COMMON NORMALS: no JVD Resp: COMMON NORMALS: normal respiratory effort and clear to auscultation bilaterally AUSCULTATION: clear to auscultation bilaterally Cardio: COMMON NORMALS: no JVD, regular rhythm, S1 normal heart sound present, S2 normal heart sound present and No murmurs present (Cardio) RHYTHM: regular rhythm HEART SOUNDS: S1 normal heart sound present and S2 normal heart sound present GI: COMMON NORMALS: Normal to inspection, nondistended, normoactive bowel sounds present, Soft to palpation and non-tender PALPATION: Yes Soft to palpation Extremity: COMMON NORMALS: no joint enlargement and no pedal edema Neuro: COMMON NORMALS: patient oriented x3 and moves all extremities SENSORIUM/ORIENTATION: Yes alert Skin: COMMON NORMALS: no rashes or lesions noted GENERAL SKIN EXAM: no rashes or lesions noted Discharge Data Studies Completed and Pending Completed Studies During Hospitalization Category Date Time Status CT abdomen pelvis w con* [id number] Stat Cat Scan 10/31/24 02:52 Completed XR chest 1V portable [id number] Stat Exams 10/31/24 07:15 Completed US gall bladder [id number] Stat Ultrasound 10/31/24 05:53 Completed Pending at discharge Category Date Time Status Blood Culture Stat Lab 10/31/24 02:15 Results Complete Blood Count w/Auto AM LABS Lab 11/02/24 04:00 Ordered Complete Blood Count w/Auto AM LABS Lab 11/03/24 04:00 Ordered Comprehensive Metabolic Panel AM LABS Lab 11/02/24 04:00 Ordered Comprehensive Metabolic Panel AM LABS Lab 11/03/24 04:00 Ordered Tick Panel Routine Lab 10/31/24 10:46 Received Radiology Impressions Abdomen/Pelvis CT 10/31/24 02:52 IMPRESSION: Diffuse hepatic steatosis which appears relatively acute from 09/13/2022. Clinical correlation is necessary for underlying possible hepatotoxic causes such as alcohol, medication, metabolic/inflammatory conditions, viruses. Gallbladder Ultrasound 10/31/24 05:53 IMPRESSION: Hepatic steatosis. Chest X-Ray 10/31/24 07:15 IMPRESSION: No acute findings. Laboratory Results WBC 10.68 10^3/uL (3.29-11.43) 11/01/24 05:30 RBC 4.56 10^6/uL (3.85-5.65) 11/01/24 05:30 Hgb 14.10 g/dL (11.27-16.99) 11/01/24 05:30 Hct 42.0 % (37-53) 11/01/24 05:30 MCV 92.1 fl (82-101) 11/01/24 05:30 MCH 30.9 pg (27-33) 11/01/24 05:30 MCHC 33.6 g/dL (30-55) 11/01/24 05:30 RDW 12.9 % (12.1-15.1) 11/01/24 05:30 Plt Count 214 10^3/cmm (157-399) 11/01/24 05:30 MPV 10.0 fL (7.4-10.4) 11/01/24 05:30 Neut % (Auto) 72.6 % 11/01/24 05:30 Lymph % (Auto) 18.4 % 11/01/24 05:30 Reeves % (Auto) 7.5 % 11/01/24 05:30 Eos % (Auto) 0.5 % 11/01/24 05:30 Baso % (Auto) 0.6 % 11/01/24 05:30 Neut # (Auto) 7.76 10^3/uL (1.8-7.7) H 11/01/24 05:30 Lymph # (Auto) 2.0 10^3/uL (0.8-4.8) 11/01/24 05:30 Reeves # (Auto) 0.8 10^3/uL (0.2-0.9) 11/01/24 05:30 Eos # (Auto) 0.1 10^3/uL (0.0-0.8) 11/01/24 05:30 Baso # (Auto) 0.1 10^3/uL (0.0-0.1) 11/01/24 05:30 Nucleated RBC % (auto) 0 % 11/01/24 05:30 Nucleated RBCs # 0.0 /100WBC 11/01/24 05:30 PT 13.40 SECONDS (12.1-14.9) 10/31/24 10:46 INR 0.95 (0.8-1.2) 10/31/24 10:46 Sodium 138 mmol/L (136-145) 11/01/24 05:30 Potassium 4.0 mmol/L (3.5-5.1) 11/01/24 05:30 Chloride 105 mmol/L (98-107) 11/01/24 05:30 Carbon Dioxide 18 mmol/L (22-29) L 11/01/24 05:30 Anion Gap 19.0 (5-19) 11/01/24 05:30 BUN 10 mg/dL (6-20) 11/01/24 05:30 Creatinine 0.9 mg/dL (0.7-1.2) 11/01/24 05:30 GFR Calculation 102.0 mL/min (90-130) 11/01/24 05:30 Glucose 114 mg/dL (65-115) 11/01/24 05:30 Estimat Average Glucose 108 10/31/24 02:16 Hemoglobin A1c 5.4 % (4.0-6.0) 10/31/24 02:16 Calculated Osmolality 286 mOsm/kg (285-295) 11/01/24 05:30 Lactic Acid 3.6 mmol/L (0.5-2.2) H 10/31/24 02:16 Lactic Acid (Sepsis) 2.9 mmol/L (0.5-2.2) H 10/31/24 05:16 Calcium 8.8 mg/dL (8.5-10.5) 11/01/24 05:30 Total Bilirubin 1.0 mg/dL (0.15-1.2) 11/01/24 05:30 AST 29 U/L (0-40) 11/01/24 05:30 ALT 78 U/L (0-41) H 11/01/24 05:30 Alkaline Phosphatase 53 U/L (40-130) 11/01/24 05:30 Creatine Kinase 288 U/L (39-308) 10/31/24 10:46 C-Reactive Protein 11.0 mg/L (0.0-4.9) H 10/31/24 02:15 Total Protein 6.2 g/dL (6.6-8.7) L 11/01/24 05:30 Albumin 3.7 g/dL (3.5-5.2) 11/01/24 05:30 Globulin 2.5 g/dL (1.3-4.6) 11/01/24 05:30 Lipase 43 U/L (13-60) 10/31/24 02:15 Urine Color Yellow (Yellow) 10/31/24 06:13 Urine Appearance Clear (CLEAR) 10/31/24 06:13 Urine pH 7.5 (5-7) 10/31/24 06:13 Ur Specific [place] 1.052 (1.005-1.030) H 10/31/24 06:13 Urine Protein Trace (Negative) A 10/31/24 06:13 Urine Glucose (UA) Negative (Normal) 10/31/24 06:13 Urine Ketones Negative (Negative) 10/31/24 06:13 Urine Blood Negative (Negative) 10/31/24 06:13 Urine Nitrate Negative (Negative) 10/31/24 06:13 Urine Bilirubin Negative (Negative) 10/31/24 06:13 Urine Urobilinogen 1.0 mg/dL (Negative) 10/31/24 06:13 Ur Leukocyte Esterase Negative (Negative) 10/31/24 06:13 Urine RBC 0-2 /hpf (0-2) 10/31/24 06:13 Urine WBC 0-5 /hpf (0-5) 10/31/24 06:13 Ur Squamous Epith Cells 0-5 /hpf (0-5) 10/31/24 06:13 Amorphous Sediment Not Reportable 10/31/24 06:13 Urine Bacteria None seen /hpf (NONE) 10/31/24 06:13 Hyaline Casts 0.40 /lpf 10/31/24 06:13 Urine Opiates Screen Negative ng/mL (Negative) 10/31/24 06:13 Acetaminophen < 5.0 ug/mL (10-30) L 10/31/24 02:15 Ur Barbiturates Screen Negative ng/mL (Negative) 10/31/24 06:13 Ur Phencyclidine Scrn Negative ng/mL (Negative) 10/31/24 06:13 Ur Amphetamines Screen Negative ng/mL (Negative) 10/31/24 06:13 U Benzodiazepines Scrn Negative ng/mL (Negative) 10/31/24 06:13 Urine Cocaine Screen Negative ng/mL (Negative) 10/31/24 06:13 U Marijuana (THC) Screen Negative ng/mL (Negative) 10/31/24 06:13 Serum Ketones Negative (Negative) 10/31/24 02:14 Adenovirus (PCR) Not detected (NOT DETECT) 10/31/24 12:10 C. pneumoniae DNA (PCR) Not detected (NOT DETECT) 10/31/24 12:10 Coronavirus 229E (PCR) Not detected (NOT DETECT) 10/31/24 12:10 Hepatitis A IgM Ab Non-reactive (Nonreactive) 10/31/24 02:16 Hep Bs Antigen Non-reactive (Nonreactive) 10/31/24 02:16 Hep B Core IgM Ab Non-reactive (Nonreactive) 10/31/24 02:16 Hepatitis C Antibody Non-reactive (Nonreactive) 10/31/24 02:16 Human Metapneumovir PCR Not detected (NOT DETECT) 10/31/24 12:10 Influenza A (H1) PCR Not detected (NOT DETECT) 10/31/24 12:10 Influ A (H1/09) PCR Not detected (NOT DETECT) 10/31/24 12:10 Influenza A (H3) PCR Not detected (NOT DETECT) 10/31/24 12:10 Influenza Type A (PCR) Not detected (NOT DETECT) 10/31/24 12:10 Influenza Type B (PCR) Not detected (NOT DETECT) 10/31/24 12:10 M. pneumoniae (PCR) Not detected (NOT DETECT) 10/31/24 12:10 Parainfluenza 1 (PCR) Not detected (NOT DETECT) 10/31/24 12:10 Parainfluenza 2 (PCR) Not detected (NOT DETECT) 10/31/24 12:10 Parainfluenza 3 (PCR) Not detected (NOT DETECT) 10/31/24 12:10 Parainfluenza 4 (PCR) Not detected (NOT DETECT) 10/31/24 12:10 RSV Type A (PCR) Not detected (NOT DETECT) 10/31/24 12:10 RSV Type B (PCR) Not detected (NOT DETECT) 10/31/24 12:10 Entero/Rhino (PCR) Not detected (NOT DETECT) 10/31/24 12:10 SARS-CoV-2 (PCR) Not detected (NOT DETECT) 10/31/24 12:10 Vitals Last Vital Signs Temp 97.8 F 11/01/24 07:19 Pulse 79 11/01/24 07:19 Resp 18 11/01/24 07:19 BP 136/92 11/01/24 07:19 Pulse Ox 97 11/01/24 07:19 O2 Del Method Room Air 11/01/24 07:19 Discharge Plan Discharge Patient Disposition: Home Condition: Stable Prescriptions: New pantoprazole 40 mg tablet,delayed release (DR/EC) 40 mg PO DAILY 42 Days Qty: 42 0RF doxycycline hyclate 100 mg capsule 100 mg PO BID 12 Days Qty: 24 0RF Continued fluticasone propionate [Flonase Allergy Relief] 50 mcg/actuation spray,suspension 2 spray intranasal DAILY Qty: 16 0RF Rx Instructions: administer into each nostril Botox 100 unit recon soln See Rx Instructions .ROUTE .COMPLEX Qty: 2 0RF Dose Instruction: Inject 155 units IM-31 sites, 5 units/site per FDA protocol: in procerus, in bilateral control clerk subassembly, frontalis (2 sites bilaterally),temporalis (4 sites bilateral), occipitalis (3 sites bilateral), paraspinosus cervical bilaterally (2 injections), trapezius (3 sites bilateral) Rx Instructions: Inject 155 units IM-31 sites, 5 units/site per FDA protocol: in procerus, in bilateral control clerk subassembly, frontalis (2 sites bilaterally),temporalis (4 sites bilateral), occipitalis (3 sites bilateral), paraspinosus cervical bilaterally (2 injections), trapezius (3 sites bilateral) cetirizine 10 mg tablet 10 mg PO DAILY PRN (Reason: Nasal Congestion) sumatriptan succinate [Imitrex] 100 mg tablet 100 mg PO DAILY PRN (Reason: Migraine Headache) Discharge Orders: Discharge Order (Routine); Ordered 11/01/24 Ordered By: Jostin Tarango Referrals: [facility] [Other] - 4-7 days Referral Note: Steatohapatitis. Liver enzyme elevation. Chronic tylenol and NSAID use. Follow up after gastroentertis. referral sent they should contact you Discharge Diet: Low Cholesterol and Low Fat Discharge Activity: Increase activity as tolerated Patient Instructions: Doxycycline (By mouth), Pantoprazole (By mouth), Gastroenteritis (GEN), Non-Alcoholic Fatty Liver Disease (GEN) Activity Restrictions/Additional Instructions: Follow-up with your primary provider for reassessment of incidentally found hepatic steatosis. As discussed maintain low-fat/low-cholesterol diet, such as Mediterranean diet. Please pursue weight loss and discussed with your primary doctor regarding weight loss options. Include 150 minutes of 100 exercise each week. Avoid any alcohol. Limit acetaminophen intake to a few days at a time with longer breaks in between as discussed to avoid chronic exposure to Tylenol and chronic toxicity to the liver. Similarly ibuprofen and other NSAIDs can have a toxic effect of the liver as well as kidneys. Please be cautious with these medications and avoid chronic/persistent use, using in short bursts only. Please hold NSAIDs for now while recovering from gastritis/gastroenteritis. Continue acid carmen medication. Follow-up with your primary doctor for reassessment of gastritis, in case of persistent symptoms discussed with your primary doctor referral for endoscopic evaluation. Complete doxycycline course, limit sun exposure while on doxycycline, have your primary doctor follow-up results of the tick panel. Seek medical attention in case of any worsening or new concerning symptoms. Seek medical attention in case of any worsening or new concerning symptoms Discharge Attestations Time Spent in Discharge Care*: greater than 30 min Quality Metrics Clinical Quality Measures [ No reported AMI, CVA or VTE this stay] Coding Level of Care Code Acute Code for Chg Fwd Diagnoses Gastroenteritis K52.9 Elevated liver enzymes R74.8 Acute lactic acidosis E87.21
[2024-11-01] MEDS: pantoprazole DR 40 mg Tablet PO (09:07)
[2024-11-01 09:52] VITALS: BP 136/92; PULSE 80; RESP 16; TEMP 36.7; O2SAT 100
[2024-11-01 16:00] LABS: Lyme AB Screen <0.90 index
[2024-11-05 19:15] LABS: RMSF IGG NOT DETECTED; RMSF IGM NOT DETECTED
[2024-11-06 19:05] LABS: E. Chaffeensis AB IGG <1:64; E. Chaffeensis AB IGM <1:20
== END 2024-11-01 09:00 | disposition home or self-care (01) ==
LOC: ER 07:19 → ER IP 07:39 → MEDSURG 18:25
PROVIDERS: Family Medicine; Admitting Provider Internal Medicine; Emergency Provider Emergency Medicine; Visit Provider Internal Medicine
DX: K52.9 Noninfective gastroenteritis and colitis, unspecified (principal); R74.8 Abnormal levels of other serum enzymes; E87.21 Acute metabolic acidosis; F17.290 Nicotine dependence, other tobacco product, uncomplicated; F17.210 Nicotine dependence, cigarettes, uncomplicated
CPT/HCPCS: 36415; 71045; 74177; 76705; 80053; 80074; 80306; 80307; 81001; 82009; 82550; 83036; 83605; 83690; 85025; 85610; 86140; 86618; 86666; 86757; 87040; 87486; 87581; 87633; 93005; 96365; 96372; 96375; 99285; G0378; J0132; J1650; J1885; J2405; J2470; J2543; J3490; J7030; J7060; J7070; J9999